=== PATIENT | female | born 1965 | race Caucasian/White ===

== ENCOUNTER 2021-01-12 21:39 | Emergency (ER) | payer SELFPAY ==
[2021-01-12 22:17] VITALS: BP 129/58; PULSE 70; RESP 18; TEMP 36.9; O2SAT 96; BMI 22.6
--- NOTE | 2021-01-12 22:26 | XR_ITS ---
PROCEDURE INFORMATION: Exam: XR Chest Exam date and time: 01/12/2021 10:26 PM Age: 55 years old Clinical indication: Cough and fever; Additional info: Cough with fever TECHNIQUE: Imaging protocol: XR of the chest. Views: 2 views. COMPARISON: No relevant prior studies available. FINDINGS: Lungs: Unremarkable. No consolidation. Pleural spaces: Unremarkable. No pleural effusion. No pneumothorax. Heart/Mediastinum: Unremarkable. No cardiomegaly. Bones/joints: Unremarkable. IMPRESSION: No acute findings.
[2021-01-12 22:31] LABS: Coronavirus 19, PCR Not Detected (NotDetected); Influenza A, PCR Not Detected (NotDetected); Influenza B, PCR Not Detected (NotDetected)
[2021-01-12 22:33] LABS: Basophils # 0.1 K/mm3 (0-0.2); Basophils % 0.7 % (0.1-2.0); Eosinophils % 0.3 % (0.1-12.0); Hematocrit 40.8 % (37.0-47.0); Hemoglobin 13.7 g/dL (12.2-16.2); Lymphocytes # 0.8 K/mm3 (0.7-4.5); Mean Corpuscular HGB Conc 33.5 g/dL (31.8-35.4); Mean Corpuscular Volume 101.5 fl (81-99); Mean Platelet Volume 8.6 fl (7.4-10.4); Monocytes % 7.4 % (1.7-9.3); Neutrophils # 11.4 K/mm3 (1.8-7.8); Neutrophils % 85.6 % (37.0-80.0); Platelet Count 327 K/mm3 (142-424); Red Blood Count 4.02 M/mm3 (4.20-5.40); Red Cell Distribution Width 13.5 % (11.5-17.5); White Blood Count 13.4 K/mm3 (4.8-10.8)
[2021-01-12 22:37] LABS: Alanine Aminotransferase 38 U/L (12-78); Albumin Level 4.3 g/dl (3.5-5.0); Albumin/Globulin Ratio 1.6 (1.1-1.8); Alkaline Phosphatase 80 U/L (38-126); Anion Gap 14.7 mEq/L (5-15); Aspartate Amino Transferase 36 U/L (14-36); Bilirubin,Total 0.5 mg/dl (0.2-1.3); Blood Urea Nitrogen 12 mg/dl (7-17); Calcium 8.9 mg/dl (8.4-10.2); Carbon Dioxide 26 mmol/L (22.0-30.0); Chloride 102 mmol/L (98-107); Creatinine Clearance Estimated 106 mL/min (50-200); Estimated Glomerular Filt Rate 104 ml/min (>60); GFR (African American) 126 ML/MIN (>60); Globulin 2.7 g/dL (1.3-3.2); Glucose 157 mg/dl (74-100); MANUAL DIFFERENTIAL MANUAL DIFFERENTIAL (MANUAL DIFF); Potassium 3.7 mmoL/L (3.5-5.1); Sodium 139 mmol/L (136-145)
[2021-01-12 22:42] VITALS: BP 121/67; PULSE 63; O2SAT 95
[2021-01-12 22:42] LABS: Strep Scrn Group A (Rapid) Negative (Negative)
[2021-01-12 22:43] LABS: C-Reactive Protein 26.3 mg/L (0-4)
[2021-01-12 22:56] LABS: Procalcitonin 0.053 ng/mL (0.0-2.0)
[2021-01-12 23:00] VITALS: BP 116/70; PULSE 66; O2SAT 94
[2021-01-12 23:00] LABS: Erythrocyte Sedimentation Rate 20 mm/hr (0-30)
[2021-01-12 23:15] LABS: Lymphocytes % 8 % (10-50); Monocytes % 8 % (2-9); Neutrophils % 84 % (42-76); Total Cells Counted 100
[2021-01-12 23:16] LABS: Macrocytosis 1+; Platelet Estimate Normal
[2021-01-12 23:53] LABS: Microscopic, Urine URINE MICROSCOPIC (MICROSCOPIC)
[2021-01-12 23:57] LABS: Appearance,Urine CLEAR (Clear); Bilirubin,Urine Negative (Negative); Blood, Urine TRACE-I (Negative); Color,Urine STRAW (Yellow); Glucose,Urine (UA) Negative (Negative); Ketones,Urine Negative (Negative); Leukocyte Esterase,Urine Negative (Negative); Nitrate,Urine Negative (Negative); Protein,Urine Negative (Negative); Specific Gravity, Urine <= 1.005 (1.005-1.030); Urobilinogen,Urine 0.2 EU/dl (0.2)
--- NOTE | 2021-01-13 00:13 | HMH.EDURI ---
ED Disposition Clinical Impression: Pharyngitis Qualifiers: Pharyngitis/tonsillitis etiology: unspecified etiology Qualified Code(s): J02.9 - Acute pharyngitis, unspecified Disposition: Home, Self-Care Condition on Discharge: Good Instructions: Sore Throat Additional Instructions: use meds and advil and tyenol and see pcp for follow up Prescriptions: predniSONE [Prednisone 20mg Tab] 20 mg PO BID #10 tab Prescription Printed Azithromycin [Zithromax 250mg tab] 250 mg PO DIRECTED #6 tab Prescription Printed Referrals: Danny Hi MD [Primary Care Provider] - - Critical Care Critical Care Time: No Attestation: On 01/12/21, the high probability of a clinically significant, sudden or life threatening deterioration of the following system(s) required my full and direct attention, intervention and personal management. The time I documented below is in addition to time spent performing reported procedures but includes the following listed in this critical care notation. Medical Decision Making - Medical Records Medical records reviewed: Yes: I reviewed the patient's medical records. - Harsha Inquiry Pt receiving controlled substance: No Vital Signs: 01/12/21 22:17 01/12/21 22:42 01/12/21 23:00 Temperature 98.5 F Temperature Source Oral Pulse Rate 63 66 Pulse Rate [Right] 70 Respiratory Rate 18 Blood Pressure 121/67 116/70 Blood Pressure [Left Arm] 129/58 L Blood Pressure Mean 99 93 Blood Pressure Mean [Left Arm] 81 02 Sat by Pulse Oximetry 96 95 94 L Oxygen Delivery Method Room Air - Lab Data Lab results reviewed: Yes: I reviewed the patient's lab results. Lab Results 01/12/21 22:10: WBC 13.4 H, RBC 4.02 L, Hgb 13.7, Hct 40.8, MCV 101.5 H, MCH 34.0 H, MCHC 33.5, RDW 13.5, Plt Count 327, MPV 8.6, Neut % (Auto) 85.6 H, Lymph % (Auto) 6.0 L, [place] % (Auto) 7.4, Eos % (Auto) 0.3, Baso % (Auto) 0.7, Neut # (Auto) 11.4 H, Lymph # (Auto) 0.8, [place] # (Auto) 1.0, Eos # (Auto) 0.0, Baso # (Auto) 0.1, Total Counted 100, Neutrophils % (Manual) 84 H, Lymphocytes % (Manual) 8 L, Monocytes % (Manual) 8, Platelet Estimate Normal, RBC Morphology Not Reportable, Macrocytosis 1+, ESR 20 01/12/21 22:10: Sodium 139, Potassium 3.7, Chloride 102, Carbon Dioxide 26, Anion Gap 14.7, BUN 12, Creatinine 0.60, Estimated Creat Clear 106, Estimated GFR 104, Est GFR ( Amer) 126, Glucose 157 H, Calcium 8.9, Total Bilirubin 0.5, AST 36, ALT 38, Alkaline Phosphatase 80, C-Reactive Protein 26.3 H, Total Protein 7.0, Albumin 4.3, Globulin 2.7, Albumin/Globulin Ratio 1.6, Procalcitonin 0.053 01/12/21 22:10: Group A Strep Rapid Negative 01/12/21 22:10: SARS-CoV-2 (PCR) Not detected, Influenza A Untype (PCR) Not detected, Influenza Type B (PCR) Not detected 01/12/21 23:50: Urine Color Straw, Urine Appearance Clear, Urine pH 6.0, Ur Specific [place] <= 1.005, Urine Protein Negative, Urine Glucose (UA) Negative, Urine Ketones Negative, Urine Blood Trace-i, Urine Nitrate Negative, Urine Bilirubin Negative, Urine Urobilinogen 0.2, Ur Leukocyte Esterase Negative Result diagrams: 01/12/21 22:10 01/12/21 22:10 Orders (Tests/Meds): ED MEDICATIONS Generic Name Dose Route Start Last Admin Trade Name Freq PRN Reason Stop Dose Admin Sodium Chloride 1,000 mls @ 999 mls/hr 01/12/21 22:30 01/12/21 22:37 Sod Chlor 0.9% 1000ml Bag IV 01/12/21 23:30 999 mls/hr .Q1H1M MOY Administration Sodium Chloride 1,000 mls @ 999 mls/hr 01/12/21 23:45 01/12/21 23:52 Sod Chlor 0.9% 1000ml Bag IV 01/13/21 00:45 999 mls/hr .Q1H1M MOY Administration Discontinued Medications Generic Name Dose Route Start Last Admin Trade Name Freq PRN Reason Stop Dose Admin Dexamethasone Sodium Phosphate 10 mg 01/12/21 22:26 01/12/21 22:36 Dexamethasone 4mg/Ml 1ml Vial IV 01/12/21 22:27 10 mg ONCE ONE Administration Ketorolac Tromethamine 30 mg 01/12/21 22:26 01/12/21 22:36 Ketorolac 30mg/Ml V
[2021-01-13 00:14] LABS: Squamous Epithelial Cell,Urine Occasional #/hpf (0-5)
[2021-01-13 00:39] VITALS: BP 122/64; PULSE 64; RESP 18; TEMP 36.6; O2SAT 98
== END 2021-01-13 00:42 | disposition home or self-care (01) ==
PROVIDERS: Emergency Provider Emergency Medicine; PCP Emergency Medicine
DX: J02.9 Acute pharyngitis, unspecified (principal); Z20.822 Contact with and (suspected) exposure to COVID-19
CPT/HCPCS: 71046; 80053; 81001; 84145; 85007; 85025; 85651; 86140; 87430; 96365; 96366; 96375; 99284; J2405; U0003

== ENCOUNTER 2021-05-22 18:50 | Emergency (ER) | payer OTHER, SELFPAY ==
[2021-05-22 18:51] VITALS: BP 98/62; PULSE 69; RESP 20; TEMP 36.9; O2SAT 69; BMI 25.2
--- NOTE | 2021-05-22 20:05 | XR_ITS ---
PROCEDURE INFORMATION: Exam: XR Left Knee Exam date and time: 05/22/2021 8:05 PM Age: 55 years old Clinical indication: Pain; Knee; Left; Additional info: Pain, swelling TECHNIQUE: Imaging protocol: XR Left knee. Views: 3 views. COMPARISON: No relevant prior studies available. FINDINGS: Bones/joints: No acute fracture or dislocation. Mild tricompartmental osteoarthrosis. Soft tissues: Rlsh-nq-ncqenosx anterior soft tissue edema. IMPRESSION: 1. No acute fracture or dislocation. 2. Bilw-sd-xnrxrjke anterior soft tissue edema. Posttraumatic versus inflammatory etiologies would be most likely.
--- NOTE | 2021-05-22 20:05 | HMH.EDGENADL ---
ED Disposition Clinical Impression: Swelling of left knee joint Disposition: Home, Self-Care Condition on Discharge: Good Instructions: DI for Knee Pain, DI for Knee Effusion Additional Instructions: You have been evaluated for atraumatic left knee pain. Diagnosed with soft tissue swelling, concerning for inflammation or an effusion. Please take anti-inflammatories like naproxen every 6 hours. Wear a compressive wrap. Use ice and elevation. Follow-up with your primary care doctor for symptom recheck in 1 to 2 days. Return to the emergency department for any new or worsening symptoms Prescriptions: Naproxen [Naproxen 500mg tab] 500 mg PO Q8 10 Days #30 tab Transmission Status: Pending to [facility] Referrals: Danny Hi MD [Primary Care Provider] - Time of Disposition: 20:57 - Critical Care Critical Care Time: No Attestation: On 05/22/21, the high probability of a clinically significant, sudden or life threatening deterioration of the following system(s) required my full and direct attention, intervention and personal management. The time I documented below is in addition to time spent performing reported procedures but includes the following listed in this critical care notation. Medical Decision Making - Medical Records Medical records reviewed: Yes: I reviewed the patient's medical records. - Harsha Inquiry Pt receiving controlled substance: No Vital Signs: 05/22/21 18:51 Temperature 98.5 F Temperature Source Oral Pulse Rate [Apical] 69 Respiratory Rate 20 Blood Pressure [Right Arm] 98/62 L Blood Pressure Mean [Right Arm] 74 Blood Pressure Source [Right Arm] Automatic Cuff Blood Pressure Position [Right Arm] Sitting 02 Sat by Pulse Oximetry 69 L Oxygen Delivery Method Room Air Orders (Tests/Meds): ED MEDICATIONS Discontinued Medications Generic Name Dose Route Start Last Admin Trade Name Freq PRN Reason Stop Dose Admin Naproxen 500 mg 05/22/21 20:05 05/22/21 20:16 Naproxen 500mg Tablet PO 05/22/21 20:06 500 mg ONCE ONE Administration Medical Decision Narrative: In summary this is a previously healthy 55-year-old female presenting to the emergency department with left knee swelling and pain. Patient clinically stable on arrival. Vital signs within normal limits, afebrile. Palpable swelling at the superior margin of the patella. There is no erythema or warmth to suggest septic arthritis. Patient has no systemic signs of illness. There were no falls or trauma. No twists or sprains. Will obtain x-rays to assess for bone spur or effusion. Patient given 500 mg naproxen. X-rays show soft tissue swelling, concerning for an effusion. No other acute abnormality. On reassessment, patient remains stable. Recommended anti-inflammatories like naproxen every 6 hours. Recommended a compressive wrap and elevation. Follow-up with PCP in 1 to 2 days for symptom recheck. Given return precautions. Stable for discharge. General Adult HPI - General Chief complaint: PAIN Stated complaint: L knee pain, swelling Time Seen by Provider: 05/22/21 19:50 Mode of Arrival: Ambulatory Limitations: No Limitations Description of Symptoms (Recalled from ER Triage Doc. by RN): Patient c/o left knee swelling and tenderness. C/o pain on the sides of her knee and the back as well. Denies fall or injury but states that her sons cat bit her knee a month ago. States that she has not have any fever nor did she have any signs of infection following the cat bite. - History of Present Illness HPI narrative: 55-year-old female presenting to the emergency department with atraumatic left knee pain. Symptoms started about 4 to 5 days ago. She has swelling in the superior portion of the kneecap. On the right side and the left side. Pain is described as a tense sensation. It is worse when bending the knee. Has minimal pain with walking. No redness or warmth to the knee joint. No kno
[2021-05-22 21:11] VITALS: BP 100/65; PULSE 80; RESP 20; TEMP 36.8; O2SAT 99
== END 2021-05-22 21:15 | disposition home or self-care (01) ==
PROVIDERS: Emergency Provider Emergency Medicine; PCP Emergency Medicine
DX: M25.462 Effusion, left knee (principal); F17.210 Nicotine dependence, cigarettes, uncomplicated
CPT/HCPCS: 73562; 99282

== ENCOUNTER 2023-08-07 07:36 | Outpatient (CLI) | payer OTHER, SELFPAY ==
--- NOTE | 2023-08-07 07:45 | CT_ITS ---
FINAL REPORT TECHNIQUE: Axial images through the abdomen and pelvis were performed without contrast. This study was performed with techniques to keep radiation doses as low as reasonably achievable, (ALARA). Individualized dose reduction techniques using automated exposure control or adjustment of mA and/or kV according to the patient's size were employed. CLINICAL HISTORY: HERNIA OF ABDOMEN COMPARISON: None FINDINGS: Abdomen: The lung bases are clear. There is moderate fatty infiltration of the liver. The gallbladder is present. The spleen, pancreas, and adrenals are unremarkable. No definite kidney stones are seen. There is no evidence of hernia. Pelvis: The urinary bladder is unremarkable. The appendix is unremarkable. There are scattered diverticula throughout the descending and sigmoid colon. There is no pelvic mass or inflammation. There are moderate hypertrophic changes of degenerative disc disease at L5-S1. IMPRESSION: Descending and sigmoid diverticulosis without evidence of diverticulitis. Fatty liver. No evidence of hernia. Reviewed, Interpreted and Dictated by Jarad Thomson MD Transcribed by Liliya Rob Authenticated and . [facility]
== END 2023-08-07 23:59 ==
LOC: RAD 07:37
PROVIDERS: PCP Nurse Practitioner Family; Visit Provider Nurse Practitioner Family
DX: K46.9 Unspecified abdominal hernia without obstruction or gangrene (principal)
CPT/HCPCS: 74176

== ENCOUNTER 2025-05-05 15:54 | Emergency (ER) | payer OTHER, SELFPAY ==
[2025-05-05] VITALS (8 sets, daily range): BP systolic 115–140; BP diastolic 32–95; PULSE 66–86; RESP 16–18; TEMP 36.7; O2SAT 91–99; BMI 25.8
--- OUTSIDE RECORDS SUMMARY | 2025-05-05 16:04 | XMS_ITS | Data Portability ---
Author Organization [facility] Address [address] [place] [address] Assessment No assessment recorded. Plan of Treatment Reminders Order Date Submit Date Provider Last Modified By Organization Details Last Modified Time Details Appointments None recorded. Lab rapid strep group A, throat 2023 024 [facility], [address] [place] [address], [id number], 4 18:43:53 rapid SARS CoV + SARS CoV 2 Ag, QL IA, respiratory specimen 2023 024 [facility], [address] [place] [address], [id number], 4 10:54:39 rapid flu (A+B) 2023 024 [facility], [address] [place] [address], [id number], 4 16:43:48 Referral None recorded. Procedures None recorded. Surgeries None recorded. Imaging CT, abdomen + pelvis, w/o contrast 2023 024 [facility] ([facility] [address], [place], [address], 4 14:04:40 Medication Orders prednisone 20 mg tablet 2023 024 [facility], [address] [address], [place], [address], 18:43:03 prednisone 20 mg tablet 2023 024 [facility], [address], [address], 18:22:15 Patient TargetsNo targets recorded. Patient InstructionsNo instructions recorded. Reason for Referral None Reported. Results Created Date Observation Date Name Description Value Unit Range Abnormal Flag Note LastModifiedBy Organization Detail LastModifiedTime 06/06/19 24 06/06/2023 rapid flu (A+B) Flu negati ve Not Available [address], [address], 06/06/2023 15:42:51 06/06/19 24 06/06/2023 rapid flu (A+B) Type Both A & B Not Available [address], [address], 06/06/2023 15:42:51 12/30/19 24 12/30/2023 rapid strep group A, throa t Strep negati ve Not Available [address], [address], 12/30/2023 17:55:55 12/30/19 24 12/30/2023 rapid strep group A, throa t Culture No Not Available [address], [address], 12/30/2023 17:55:55 12/31/19 24 12/31/2023 rapid SARS CoV + SARS CoV 2 Ag, QL IA, respi rator y speci men SARS CoV antigen Invali d Not Available [address], [address], 12/30/2023 17:57:23 08/07/19 24 08/07/2023 CT, abdom en + pelvi s, w/o contr ast No observ ation record ed. [facility] [address], [place], [address], 08/08/2023 14:45:02 Result Notes None recorded. Problems No Known Problems Medical Equipment None Reported. Allergies No known drug allergies Medications Name Sig Start Date Stop Date Status Note LastModified by Organization Details LastModified Time prednisone 20 mg tablet TAKE ONE (1) TABLET TWICE A DAY BY ORAL ROUTE FOR FIVE (5) DAYS. active Not Available Not Available No t Available Vitals Date Recorded Body weight Body mass index (BMI) Body height Body temperature Heart rate Oxygen saturation Respiratory rate Systolic And Diastolic Provider Name and Address Organization Details Last Updated DateTime 4 80792.9 6 g 26.1 kg/m2 167.64 cm 98 [degF] 68 /min 95 % 18 /min 122/76 mm[Hg] Nisha Ramesh [place] - [facility] 4 15:37:59 Date Recorded Body height Body mass index (BMI) Body weight Body temperature Heart rate Oxygen saturation Respiratory rate Pain severity - 0-10 verbal numeric rating [Score] - Reported Systolic And Diastolic Provider Name and Address Organization Details Last Updated DateTime 4 167.64 cm 26.8 kg/m2 47451.3 3 g 98.3 [degF] 76 /min 98 % 18 /min 3 120/74 mm[Hg] Teresa Willingham [place] - [facility] 4 17:58:07 Social History Question Answer Notes LastModified by Organizat ion Details LastModified Time Tobacco Smoking Status Current Every Day Smoker Nisha Ramesh [facility], [place] - [facility] 06/06/2023 15:40:34 Do You Have An Advance Directive? No Information not available 06/06/2023 Are You Blind Or Do You Have Difficulty Seeing? No Information not available 06/06/2023 What Is Your Level Of Caffeine Consumption? Moderate Information not available 06/06/2023 Are You Deaf Or Do You Have Serious Difficulty Hearing? No Information not available 06/06/2023 What Type Of Diet Are You Following? REGULAR Information not available 06/06/2023 What Is The Highest Grade Or Level Of School You Have Completed Or The Highest Degree You Have Received? EC99946-4 Information not available 06/06/2023 Have There Been Any Changes To Your Family Or Social Situation? No Information no t available 06/06/2023 What Is The Fluoride Status Of Your Home? Unknown Information not available 06/06/2023 Do You Have A Medical Power Of Degreasing Solution Reclaimer? No Information not available 06/06/2023 What Was The Date Of Your Most Recent Tobacco Screening? 06/06/2023 Information not available 06/06/2023 What Is Your Current Pack Years? 30ormorepacky ears Information not available 06/06/2023 What Is Your Relationship Status? Single Information not available 06/06/2023 Do You Have Smoke And Carbon Monoxide Detectors In Your Home? Yes Information not available 06/06/2023 At What Age Did You Start Smoking Tobacco? 16 Information not available 06/06/2023 How Much Tobacco Do You Smoke? 1 PPW Information not available 06/06/2023 Has Tobacco Cessation Counseling Been Provided? No Information not available 06/06/2023 How Many Years Have You Smoked Tobacco? 41 Information not available 06/06/2023 Do You Have Difficulty Walking Or Climbing Stairs? No Information not available 06/06/2023 Sex: Female Functional Status Question Answer Note LastModified by Organizat ion Details LastModified Time How many times per week do you consume alcohol? 1-2 times per week Information not available 06/06/2023 Do you use any illicit or recreational drugs? No Information not available 06/06/2023 Do you or have you ever used any other forms of tobacco or nicotine? No Information not available 06/06/2023 What is your level of alcohol consumption? Occasional Information not available 06/06/2023 Are you currently employed? No Information not available 06/06/2023 Do you have transportation difficulties? No Information not available 06/06/2023 Are you able to walk independently without assistance or assistive devices? YESWOREST Information not available 06/06/2023 Do you have difficulty doing errands alone? No Information not available 06/06/2023 Are you able to care for yourself independently? Yes Information not available 06/06/2023 Do you have difficulty dressing, bathing, grooming, or toileting? No Information not available 06/06/2023 What is your exercise level? None Information not available 06/06/2023 Mental Status Question Answer Note LastModified by Organizat ion Details LastModified Time Do you feel stressed (tense, restless, nervous, or anxious, or unable to sleep at night)? [id number] Information not available 06/06/2023 Do you have difficulty concentrating, remembering or making decisions? No Information no t available 06/06/2023 Family History Relationship Description Onset Age of this Age Resolved Age Notes LastModified by Organization Details LastModified Time Father No current problems or disability bstears Not available 06/06 15:39:30 Mother No current problems or disability bstears Not available 06/06 15:39:30 Medical History No medical history recorded. Gynecological History Statement/Question Response Date of Last Colonoscopy Date of Last Mammogram Most Recent Bone Density Menses Monthly N Date of Last Pap Smear LMP Unknown Obstetrics History GPAL:G 0 P 0 0 0 0 Immunizations Vaccine Type Date Status Note Provider Nam e and Address Organization Details Recorded Time Td (adult), 2 Lf tetanus toxoid, preservative free, adsorbed 6 completed [place] - [facility] 06/06/2023 15:29:55 Past Encounters Encounter ID Performer Location Encounter Start Date Encounter Closed Date Diagnosis/Indication Diagnosis SNOMED-CT Code Diagnosis ICD10 Code Diagnosis IMO Codes Diagnosis Note [id number] Jose Quintanilla APRN [address] [address] 06/06/2023 15:15:51 06/06/2023 16:41:34 Acute upper respiratory infection 17657370 J06.9 Abdominal pain 14738229 R10.9 Hernia of abdominal cavity 66397528 K46.9 r/o hernia or risk of bowel injuryinfo rmed if symptoms return or worsen go to ed last [id number] Jose Quintanilla APRN [facility] [address] [place] [address] 12/30/2023 17:34:43 12/30/2023 18:41:43 Pharyngitis 126930357 J02.9 Acute bronchitis 4371441 2 J20.9 Acute uppe r respiratory infection 25118088 J06.9 no sign of a bacterial infection. likely viral. viruses can take 7-14 days to run their course. nasal saline and bulb syringe to remove nasal drainage to help with congestion . monitor temp. Tylenol or Motrin as needed for pain or fever. encourage fluids, water, Gatorade, power aide, Pedialyte if infant/tod dler/child warm salt water gargles warm fluids sore throat lozenges sleep elevated humidifier /vaporizer follow up immediatel y for new or worsening symptoms or no noticeable improvemen t over the next 48-72 hours Health Concerns Section Related Observation LastModified by Organization Detai ls LastModified Time None Recorded Concern Status LastModified by Organization Details LastModified Time None Recorded Advance Directives Directive N: Payers Insurance Date Sequence Insurance Name Policy Number Policy Ward Covered Member ID Ward Member ID Guarantor Name 12/30/2023 1 [employer] [facility] (MEDICAID [facility] Sharon Canales [id number] Sharon Canales 12/30/2023 [place] [employer] (MEDICAID) Sharon Canales [id number] Sharon Canales Notes Date Note Type Note Provider Name and Address Organization Details Recorded Time 06/06/2023 text/html ROS as noted in the HPI 57 year old female who presents to the office today with concerns ofcough, congestion, headache, body aches.pt also having abd pain, tenderness and at times a hard knot that sticks out. pt states she has had a change in her bowel habits. this has been going on for months Jose Quintanilla APRN [address], [place], [address], [place] - [facility] 06/06/2023 16:44:11 12/30/2023 text/html ROS as noted in the HPI 58 yr old female presents with bilateral ear pain, sore throat, cough, clear drainage and body aches. Jose Quintanilla, [employer] P[employer] [address], [place], [address], [facility] - [facility] 12/30/2023 18:43:27 OBGyn Episode No OBEpisode recorded.
[2025-05-05 16:12] LABS: Bilirubin,Urine Negative (Negative); Color,Urine YELLOW (Yellow); Glucose,Urine (UA) Negative (Negative); Ketones,Urine 1+ (Negative); Leukocyte Esterase,Urine Negative (Negative); PH,Urine 5.5 (5.0-8.5); Protein,Urine Negative (Negative); Specific Gravity, Urine >= 1.030 (1.005-1.030); Urobilinogen,Urine 0.2 EU/dl (0.2)
[2025-05-05 16:13] LABS: Microscopic, Urine URINE MICROSCOPIC (MICROSCOPIC)
--- NOTE | 2025-05-05 16:20 | [facility].EDGENADL ---
Discharge Plan Disposition Patient Disposition: Left Against Medical Advice Condition: Fair Prescriptions Prescriptions: No Action prednisone 20 mg tablet 20 mg PO BID Qty: 10 0RF Rx Instructions: administer with food or milk acyclovir 400 mg tablet 400 mg PO QID 7 Days Qty: 28 0RF naproxen 500 MG tablet 500 mg PO Q8 10 Days Qty: 30 0RF Referrals Follow up/Referrals: Jose Quintanilla APRN [Primary Care Provider, Medical] - See instructions Clinical Impressions Clinical Impression: Abscess of sigmoid colon due to diverticulitis Instructions Patient Instructions: DI for Urinary Tract Infection (UTI), DI for Urinary Tract Infection in Children Print Language Print Language: Korean Discharge ED Provider: Michael Ramos General Adult HPI <Farheen Gilbert APRN - Last Filed: 05/05/25 19:23> General Chief complaint: Urogenital-Female Stated complaint: burning,frequency with urination,stomach pain Time Seen by Provider: 05/05/25 16:03 Mode of Arrival: Ambulatory Source of Information: Patient Description of Symptoms (Recalled from ER Triage Doc. by RN): Reports burning with urination, abdominal pain and feeling like she needs to poop but can't. States this has been going on for 3 days. History of Present Illness HPI narrative: Kristen Mahmood is a 59-year-old female without significant past medical history who presents emergency room today with complaints of dysuria. Patient reports her dysuria started earlier this morning. Does report she has had a couple days of nonspecific lower abdominal cramping when she uses the bathroom. States the cramping was worse when she had a bowel movement. During her bowel movement, she reports the cramping seem to radiate down into her groin region. Otherwise has no abdominal pain while at rest. No prior abdominal surgeries. Denies any cough, fever, chest pain, shortness of breath. Does not take any blood thinners. Endorses daily tobacco use. No alcohol or illicit drug use. Please note that the above description of symptoms, and this electronic medical record under categorization of recalled from ER triage doctor by RN are reflective of an initial nursing assessment, however, is not reflective of my full history and physical exam that was personally taken and clarified. Consequentially, this proceeding description of symptoms, which may include the patient's cauterized chief complaint in the EMR, do not reflect my personal clinical impression, and the ultimate description of the history of present illness stated complaints should be deferred to this section of this note. Unless stated otherwise were congruent with the section of the note, additional signs, symptoms, or incongruence can be interpreted as in or accurate with my clinical impression. Related Data Previous Rx's ?Medication ?Instructions ?Recorded naproxen 500 mg tablet 500 mg PO Q8 10 days #30 tabs 05/22/21 acyclovir 400 mg tablet 400 mg PO QID 7 days #28 tabs 10/16/24 prednisone 20 mg tablet 20 mg PO BID #10 tabs 10/16/24 amoxicillin 500 mg-potassium 1 tab PO BID #20 tabs 05/05/25 clavulanate 125 mg tablet (Augmentin) Allergies Allergy/AdvReac Type Severity Reaction Status Date / Time No Known Allergies Allergy Verified 10/16/24 13:43 PFS <Farheen Gilbert APRN - Last Filed: 05/05/25 19:23> PFS Disclaimer: The information contained in this section may have been updated after the patient was seen, as this information can be updated by other users. Social History , MOLDING PRESS OPERATOR) Smoking Status: Current every day smoker tobacco type: cigarettes packs per day: 1 alcohol intake: never current occupational status: unemployed Travel in the last 8 weeks?: None Have you lived/traveled outside US in past 30 days?: No Contact w/someone who lives/traveled outside US past 30 days?: No Exposure to someone with infectious disease in past 14 days?: No Do you have a fever (greater than 100.4 F or 38 C)?: No Have you tested positive for COVID-19?: No Exposed to someone with COVID-19 in past 14 days?: No Do you have a sore throat?: No Do you have a cough?: No Do you have any weakness?: No Do you have any diarrhea?: No Are you experiencing any unusual bleeding?: No Do you have any muscle aches/pain?: No Do you have any abdominal pain?: No Are you experiencing loss of taste or smell?: No Other Medical History Have you received the Flu Vaccine for this season: No Have you received the Pneumonia Vaccine: No <Farheen Gilbert APRN - Last Filed: 05/05/25 19:23> ROS Obtained: Yes All systems reviewed & no additional complaints except as documented Physical Exam <Farheen Ofelia MOLDING PRESS OPERATOR - Last Filed: 05/05/25 19:23> General General appearance: alert Respiratory Respiratory exam: Present normal lung sounds bilaterally Cardiovascular Cardiovascular exam: Present regular rate and normal rhythm Neurological Exam Neurological exam: Present alert and oriented X3 Medical Decision Making <Farheen DARVIN GilbertN - Last Filed: 05/05/25 19:23> Medical Records Screening: Per USPSTF and CDC recommendations, given the prevalence of disease in our region, it is our hospital?s policy to screen for HIV and viral Hepatitis for all patients aged 18 and over and those with ongoing risk factors. Harsha Inquiry Pt receiving controlled substance: No Vital Signs: 05/05/25 16:05 05/05/25 16:12 05/05/25 16:30 Temperature 98.0 F Temperature Source Oral Pulse Rate 66 69 Pulse Rate [Radial] 76 Respiratory Rate 18 Blood Pressure 118/32 L Blood Pressure [Right Arm] 133/93 H Blood Pressure Mean [Right Arm] 106 Blood Pressure Source [Right Arm] Automatic Cuff Blood Pressure Position [Right Arm] Sitting 02 Sat by Pulse Oximetry 98 99 91 L Oxygen Delivery Method Room Air 05/05/25 17:29 05/05/25 17:30 05/05/25 18:00 Temperature Temperature Source Pulse Rate 83 73 70 Pulse Rate [Radial] Respiratory Rate Blood Pressure 122/95 H 126/71 Blood Pressure [Right Arm] Blood Pressure Mean [Right Arm] Blood Pressure Source [Right Arm] Blood Pressure Position [Right Arm] 02 Sat by Pulse Oximetry 97 97 99 Oxygen Delivery Method 05/05/25 18:31 Temperature Temperature Source Pulse Rate 72 Pulse Rate [Radial] Respiratory Rate Blood Pressure 115/70 Blood Pressure [Right Arm] Blood Pressure Mean [Right Arm] Blood Pressure Source [Right Arm] Blood Pressure Position [Right Arm] 02 Sat by Pulse Oximetry 96 Oxygen Delivery Method Lab Data Lab Results 05/05/25 15:54: Urine Color Yellow, Urine Appearance Clear, Urine pH 5.5, Ur Specific [place] >= 1.030, Urine Protein Negative, Urine Glucose (UA) Negative, Urine Ketones 1+, Urine Blood Trace-i, Urine Nitrate Negative, Urine Bilirubin Negative, Urine Urobilinogen 0.2, Ur Leukocyte Esterase Negative, Urine RBC 10-20, Urine WBC 3-5, Ur Squamous Epith Cells 5-10, Urine Bacteria 2+, Urine Mucus 2+ 05/05/25 16:48: WBC 19.1 H, RBC 3.74 L, Hgb 12.3, Hct 36.8 L, MCV 98.4, MCH 32.9 H, MCHC 33.4, RDW 12.5, Plt Count 359, MPV 10.3, Neut % (Auto) 74.5, Lymph % (Auto) 13.9, Lynn % (Auto) 10.1 H, Eos % (Auto) 0.9, Baso % (Auto) 0.3, Neut # (Auto) 14.2 H, Lymph # (Auto) 2.7, Lynn # (Auto) 1.9 H, Eos # (Auto) 0.2, Baso # (Auto) 0.1, Total Counted 100, Neutrophils % (Manual) 75, Lymphocytes % (Manual) 11, Monocytes % (Manual) 13 H, Eosinophils % (Manual) 1, Platelet Estimate Normal, RBC Morphology Normal, Sodium 137, Potassium 3.8, Chloride 103, Carbon Dioxide 27, Anion Gap 10.8, BUN 17, Creatinine 0.60, Estimated Creat Clear 116, Estimated GFR 102, Est GFR ( Amer) 124, Glucose 114 H, Calcium 8.9, Magnesium 1.9, Total Bilirubin 0.8, AST 41 H, ALT 47, Alkaline Phosphatase 96, Troponin I < 0.01, Total Protein 7.6, Albumin 4.3, Globulin 3.3 H, Albumin/Globulin Ratio 1.3, Lipase 52, HCV Ab TERESA w/Rflx PCR Qn Negative, HIV Ag/Ab Combo Qual Negative 05/05/25 16:48 05/05/25 16:48 Orders (Tests/Meds): ED MEDICATIONS Generic Name Dose Route Start Last Admin Trade Name Freq PRN Reason Stop Dose Admin Amoxicillin/Clavulanate Potassium 1 each 05/05/25 19:19 05/05/25 19:24 Amoxicillin/Clavulanate Potassium 875/125mg Tablet PO 05/05/25 19:20 1 each ONCE ONE Administration Nicotine 21 mg 05/05/25 19:00 Nicotine 21mg/24hr Patch TD 06/04/25 18:59 DAILY MOY Discontinued Medications Generic Name Dose Route Start Last Admin Trade Name Freq PRN Reason Stop Dose Admin Acetaminophen 650 mg 05/05/25 19:08 Acetaminophen 325mg Tab PO 06/04/25 19:07 Q4HP PRN Fever or Mild Pain (1-3) Piperacillin Sod/Tazobactam 100 mls @ 200 mls/hr 05/05/25 18:39 Sod 4.5 gm/ Sodium Chloride IV 05/05/25 19:08 ONCE ONE Piperacillin Sod/Tazobactam 50 mls @ 100 mls/hr 05/06/25 06:00 Sod 3.375 gm/ Sodium Chloride IV 05/13/25 05:59 Q6H MOY Iopamidol 80 ml 05/05/25 17:34 05/05/25 17:35 Iopamidol-370 (76%);100ml Bottle IV 05/05/25 17:35 80 ml ONCE ONE Administration Morphine Sulfate 2 mg 05/05/25 19:01 Morphine 2mg/Ml Syringe IV 06/04/25 19:00 Q4HP PRN Severe Pain (7-10) Ondansetron HCl 4 mg 05/05/25 19:08 Ondansetron 4mg/2ml Vial IV 06/04/25 19:07 Q8HP PRN Nausea Oxycodone HCl 5 mg 05/05/25 19:01 Oxycodone 5mg Immediate Release Tablet PO 06/04/25 19:00 Q4HP PRN Moderate Pain (4-6) Sodium Chloride 50 ml 05/05/25 17:34 05/05/25 17:35 0.9 % Sodium Chloride 50 Ml Vial IV 05/05/25 17:35 50 ml ONCE ONE Administration Sodium Chloride 10 ml 05/05/25 17:34 05/05/25 17:35 Sodium Chloride 0.9% 10ml Syr (Rad Only) IV 05/05/25 17:35 10 ml ONCE ONE Administration ORDERS Category Date Time Status CT angio abdomen pelvis Stat Cat Scan 05/05/25 16:40 Completed CBC w/Auto Diff [Complete Blood Count Auto Diff] Stat Lab 05/05/25 16:48 Completed CMP [Comprehensive Metabolic Panel] Stat Lab 05/05/25 16:48 Completed HIV Combo Stat Lab 05/05/25 16:48 Completed Hepatitis C Ab Qual. W/ RFX Stat Lab 05/05/25 16:48 Completed Lipase Stat Lab 05/05/25 16:48 Completed MAG [Magnesium] Stat Lab 05/05/25 16:48 Completed Trop I [Troponin I] Stat Lab 05/05/25 16:48 Completed Troponin I Q3H Lab 05/05/25 19:45 Ordered Troponin I Q3H Lab 05/05/25 22:45 Ordered UA [Urinalysis and Microscopic] Stat Lab 05/05/25 15:54 Completed Blood Culture Stat Micro 05/05/25 18:58 Ordered Urine Culture Stat Micro 05/05/25 15:54 Received Medical Decision Narrative: In summary patient is an 59-year-old female who presents emergency department for evaluation of dysuria and intermittent nonspecific abdominal cramping. Patient not having any focal abdominal pain, no abdominal pain reported at this time. Most reports her cramping and pain are worse when she has a bowel movement. Reports her dysuria started earlier today. No vaginal discharge noted. No fever. Patient is hemodynamically stable, sinus rhythm on the monitor, normotensive upon arrival, afebrile. Unremarkable nonfocal physical exam. Patient without any abdominal tenderness upon palpation. Differential diagnosis includes acute cystitis, appendicitis, kidney stone. Initial workup will be conducted with urinalysis for now. If urinalysis is negative, we will proceed with additional testing. Urinalysis was negative. Basic lab work and CT of the abdomen pelvis with contrast was ordered. Initial workup reviewed by me hematologic labs remarkable of a significant leukocytosis of 19,000. CMP essentially unremarkable. CT of the abdomen pelvis shows a severely plain sigmoid colon with a 1.3 x 2.1 cm abscess likely secondary to diverticulitis, no evidence of perforation noted. Dr. Lopez with general surgery was consulted. Recommended keeping the patient here with IV antibiotics and a clear liquid diet. She was started on Zosyn and blood cultures were drawn. Given this case was discussed with hospital medicine, was graciously accepted for admission by Dr. Luis Daniel Cary came to assess patient to admit her to the hospital, patient expressed that she wished to sign out AGAINST MEDICAL ADVICE. I personally went and spoke to the patient and her daughter who is at bedside. I explained to the patient that if she is to leave AGAINST MEDICAL ADVICE without getting antibiotic treatment, this abscess in her sigmoid colon could perforate causing an extensive amount of numerous issues to include but not limited to sepsis, multiple abdominal surgeries, the need for colostomy, and/or . Patient and daughter aware of the risks of leaving the hospital AGAINST MEDICAL ADVICE. Patient states that she was just not ready to be admitted to the hospital . She wants to go home and smoke a cigarette, she also states she has family that is still at home. I will give her a one-time dose of Augmentin while she is here in the hospital and call her in some Augmentin to her pharmacy. I spent at least 20 minutes discussing the risks of signing out AGAINST MEDICAL ADVICE to this patient. I expressed multiple times that she needs to stay to be admitted for IV antibiotics. Patient continued to desire to leave AGAINST MEDICAL ADVICE. She signed the AMA paperwork, bedside nurse at bedside. <Michael Ramos, DO - Last Filed: 05/05/25 19:35> Medical Records Medical records reviewed: Yes I reviewed the patient's medical records. Vital Signs: 05/05/25 16:05 05/05/25 16:12 05/05/25 16:30 Temperature 98.0 F Temperature Source Oral Pulse Rate 66 69 Pulse Rate [Radial] 76 Respiratory Rate 18 Blood Pressure 118/32 L Blood Pressure [Right Arm] 133/93 H Blood Pressure Mean [Right Arm] 106 Blood Pressure Source [Right Arm] Automatic Cuff Blood Pressure Position [Right Arm] Sitting 02 Sat by Pulse Oximetry 98 99 91 L Oxygen Delivery Method Room Air 05/05/25 17:29 05/05/25 17:30 05/05/25 18:00 Temperature Temperature Source Pulse Rate 83 73 70 Pulse Rate [Radial] Respiratory Rate Blood Pressure 122/95 H 126/71 Blood Pressure [Right Arm] Blood Pressure Mean [Right Arm] Blood Pressure Source [Right Arm] Blood Pressure Position [Right Arm] 02 Sat by Pulse Oximetry 97 97 99 Oxygen Delivery Method 05/05/25 18:31 Temperature Temperature Source Pulse Rate 72 Pulse Rate [Radial] Respiratory Rate Blood Pressure 115/70 Blood Pressure [Right Arm] Blood Pressure Mean [Right Arm] Blood Pressure Source [Right Arm] Blood Pressure Position [Right Arm] 02 Sat by Pulse Oximetry 96 Oxygen Delivery Method Lab Data Lab Results 05/05/25 15:54: Urine Color Yellow, Urine Appearance Clear, Urine pH 5.5, Ur Specific [place] >= 1.030, Urine Protein Negative, Urine Glucose (UA) Negative, Urine Ketones 1+, Urine Blood Trace-i, Urine Nitrate Negative, Urine Bilirubin Negative, Urine Urobilinogen 0.2, Ur Leukocyte Esterase Negative, Urine RBC 10-20, Urine WBC 3-5, Ur Squamous Epith Cells 5-10, Urine Bacteria 2+, Urine Mucus 2+ 05/05/25 16:48: WBC 19.1 H, RBC 3.74 L, Hgb 12.3, Hct 36.8 L, MCV 98.4, MCH 32.9 H, MCHC 33.4, RDW 12.5, Plt Count 359, MPV 10.3, Neut % (Auto) 74.5, Lymph % (Auto) 13.9, Lynn % (Auto) 10.1 H, Eos % (Auto) 0.9, Baso % (Auto) 0.3, Neut # (Auto) 14.2 H, Lymph # (Auto) 2.7, Lynn # (Auto) 1.9 H, Eos # (Auto) 0.2, Baso # (Auto) 0.1, Total Counted 100, Neutrophils % (Manual) 75, Lymphocytes % (Manual) 11, Monocytes % (Manual) 13 H, Eosinophils % (Manual) 1, Platelet Estimate Normal, RBC Morphology Normal, Sodium 137, Potassium 3.8, Chloride 103, Carbon Dioxide 27, Anion Gap 10.8, BUN 17, Creatinine 0.60, Estimated Creat Clear 116, Estimated GFR 102, Est GFR ( Amer) 124, Glucose 114 H, Calcium 8.9, Magnesium 1.9, Total Bilirubin 0.8, AST 41 H, ALT 47, Alkaline Phosphatase 96, Troponin I < 0.01, Total Protein 7.6, Albumin 4.3, Globulin 3.3 H, Albumin/Globulin Ratio 1.3, Lipase 52, HCV Ab TERESA w/Rflx PCR Qn Negative, HIV Ag/Ab Combo Qual Negative Orders (Tests/Meds): ED MEDICATIONS Generic Name Dose Route Start Last Admin Trade Name Freq PRN Reason Stop Dose Admin Amoxicillin/Clavulanate Potassium 1 each 05/05/25 19:19 05/05/25 19:24 Amoxicillin/Clavulanate Potassium 875/125mg Tablet PO 05/05/25 19:20 1 each ONCE ONE Administration Nicotine 21 mg 05/05/25 19:00 Nicotine 21mg/24hr Patch TD 06/04/25 18:59 DAILY MOY Discontinued Medications Generic Name Dose Route Start Last Admin Trade Name Freq PRN Reason Stop Dose Admin Acetaminophen 650 mg 05/05/25 19:08 Acetaminophen 325mg Tab PO 06/04/25 19:07 Q4HP PRN Fever or Mild Pain (1-3) Piperacillin Sod/Tazobactam 100 mls @ 200 mls/hr 05/05/25 18:39 Sod 4.5 gm/ Sodium Chloride IV 05/05/25 19:08 ONCE ONE Piperacillin Sod/Tazobactam 50 mls @ 100 mls/hr 05/06/25 06:00 Sod 3.375 gm/ Sodium Chloride IV 05/13/25 05:59 Q6H MOY Iopamidol 80 ml 05/05/25 17:34 05/05/25 17:35 Iopamidol-370 (76%);100ml Bottle IV 05/05/25 17:35 80 ml ONCE ONE Administration Morphine Sulfate 2 mg 05/05/25 19:01 Morphine 2mg/Ml Syringe IV 06/04/25 19:00 Q4HP PRN Severe Pain (7-10) Ondansetron HCl 4 mg 05/05/25 19:08 Ondansetron 4mg/2ml Vial IV 06/04/25 19:07 Q8HP PRN Nausea Oxycodone HCl 5 mg 05/05/25 19:01 Oxycodone 5mg Immediate Release Tablet PO 06/04/25 19:00 Q4HP PRN Moderate Pain (4-6) Sodium Chloride 50 ml 05/05/25 17:34 05/05/25 17:35 0.9 % Sodium Chloride 50 Ml Vial IV 05/05/25 17:35 50 ml ONCE ONE Administration Sodium Chloride 10 ml 05/05/25 17:34 05/05/25 17:35 Sodium Chloride 0.9% 10ml Syr (Rad Only) IV 05/05/25 17:35 10 ml ONCE ONE Administration ORDERS Category Date Time Status CT angio abdomen pelvis Stat Cat Scan 05/05/25 16:40 Completed CBC w/Auto Diff [Complete Blood Count Auto Diff] Stat Lab 05/05/25 16:48 Completed CMP [Comprehensive Metabolic Panel] Stat Lab 05/05/25 16:48 Completed HIV Combo Stat Lab 05/05/25 16:48 Completed Hepatitis C Ab Qual. W/ RFX Stat Lab 05/05/25 16:48 Completed Lipase Stat Lab 05/05/25 16:48 Completed MAG [Magnesium] Stat Lab 05/05/25 16:48 Completed Trop I [Troponin I] Stat Lab 05/05/25 16:48 Completed Troponin I Q3H Lab 05/05/25 19:45 Ordered Troponin I Q3H Lab 05/05/25 22:45 Ordered UA [Urinalysis and Microscopic] Stat Lab 05/05/25 15:54 Completed Blood Culture Stat Micro 05/05/25 18:58 Ordered Urine Culture Stat Micro 05/05/25 15:54 Received Medical Decision Narrative: In summary patient is an 59-year-old female who presents emergency department for evaluation of dysuria and intermittent nonspecific abdominal cramping. Patient not having any focal abdominal pain, no abdominal pain reported at this time. Most reports her cramping and pain are worse when she has a bowel movement. Reports her dysuria started earlier today. No vaginal discharge noted. No fever. Patient is hemodynamically stable, sinus rhythm on the monitor, normotensive upon arrival, afebrile. Unremarkable nonfocal physical exam. Patient without any abdominal tenderness upon palpation. Differential diagnosis includes acute cystitis, appendicitis, kidney stone. Initial workup will be conducted with urinalysis for now. If urinalysis is negative, we will proceed with additional testing. Urinalysis was negative. Basic lab work and CT of the abdomen pelvis with contrast was ordered. Initial workup reviewed by me hematologic labs remarkable of a significant leukocytosis of 19,000. CMP essentially unremarkable. CT of the abdomen pelvis shows a severely plain sigmoid colon with a 1.3 x 2.1 cm abscess likely secondary to diverticulitis, no evidence of perforation noted. Dr. Lopez with general surgery was consulted. Recommended keeping the patient here with IV antibiotics and a clear liquid diet. She was started on Zosyn and blood cultures were drawn. Given this case was discussed with hospital medicine, was graciously accepted for admission by Dr. Luis Daniel Cary came to assess patient to admit her to the hospital, patient expressed that she wished to sign out AGAINST MEDICAL ADVICE. I personally went and spoke to the patient and her daughter who is at bedside. I explained to the patient that if she is to leave AGAINST MEDICAL ADVICE without getting antibiotic treatment, this abscess in her sigmoid colon could perforate causing an extensive amount of numerous issues to include but not limited to sepsis, multiple abdominal surgeries, the need for colostomy, and/or . Patient and daughter aware of the risks of leaving the hospital AGAINST MEDICAL ADVICE. Patient states that she was just not ready to be admitted to the hospital . She wants to go home and smoke a cigarette, she also states she has family that is still at home. I will give her a one-time dose of Augmentin while she is here in the hospital and call her in some Augmentin to her pharmacy. I spent at least 20 minutes discussing the risks of signing out AGAINST MEDICAL ADVICE to this patient. I expressed multiple times that she needs to stay to be admitted for IV antibiotics. Patient continued to desire to leave AGAINST MEDICAL ADVICE. She signed the AMA paperwork, bedside nurse at bedside. I was consulted by the BELLE, and we discussed the complexity of problems being addressed. I approved the treatment and management plan for this patient's care in the emergency department, thus performing a substantive portion of the medical decision making. Michael Ramos, DO This is Dr. Ramos. I independently evaluated this patient and obtained collateral history as well. She tells me that for the last 3 days she has been having lower abdominal pain characterized as cramping. She also states that she is having dysuria and believes that she had a urinary tract infection. We initially examine the patient and she did not have hardly any abdominal tenderness and she stated that she was currently pain-free and that her pain was more intermittent in nature. We initially proceeded with a urinalysis and found the patient had no evidence of urinary tract infection so we decided to extend her workup with hematologic labs and a CT scan of the abdomen and pelvis. She had a significant leukocytosis of 19. Remainder of labs are largely unremarkable. Given that she is reporting pain out of proportion to what we are finding on physical examination we decided to proceed with a CT angio of the abdomen and pelvis as she also told us that her pain was postprandial in nature. We found that she had concerning evidence of sigmoid diverticulitis with phlegmon versus abscess formation. I personally informed the patient of these results and explained thoroughly the definition of diverticulitis and the associated harms that could come as a consequence of her condition. I stressed the importance of admission to the hospital for IV antibiotics and evaluation by surgery tomorrow. The patient was initially agreeable with this plan and we had her admitted to the hospital medicine service. However, the patient then asked to go outside and smoke a cigarette which is against hospital policy and at this point she stated that she wanted to sign out AGAINST MEDICAL ADVICE. We had a long conversation with the patient about risk and benefits including the need for abdominal surgery, sepsis, bacteremia, and . Despite this she wished to proceed with sign out AGAINST MEDICAL ADVICE. Therefore we gave the patient a dose of Augmentin here in the emergency department and will send Augmentin to the pharmacy for her to continue taking. Strict return precautions have been given to the patient acknowledges understanding that she is welcome to return anytime to the hospital for further care of her condition. Critical Care <Farheen Gilbert, MOLDING PRESS OPERATOR - Last Filed: 05/05/25 19:23> Critical Care Time Critical Care Time: No
[2025-05-05 16:37] LABS: Bacteria,Urine 2+ /lpf
[2025-05-05 16:38] LABS: Mucus,Urine 2+ /lpf
--- NOTE | 2025-05-05 16:40 | CT_ITS ---
PROCEDURE INFORMATION: Exam: CTA Abdomen and Pelvis With Contrast Exam date and time: 05/05/2025 5:24 PM Age: 59 years old Clinical indication: Abdominal pain; Other: Back pain; Additional info: Post prandial abdominal pain TECHNIQUE: Imaging protocol: Computed tomographic angiography of the abdomen and pelvis with contrast. Exam focused on the arteries. 3D rendering (Not supervised by radiologist): MIP and/or 3D reconstructed images were created by the technologist. Radiation optimization: All CT scans at this facility use at least one of these dose optimization techniques: automated exposure control; mA and/or kV adjustment per patient size (includes targeted exams where dose is matched to clinical indication); or iterative reconstruction. Contrast material: ISOSVUE; Contrast volume: 80 ml; Contrast route: INTRAVENOUS (IV); COMPARISON: CT ABDOMEN PELVIS WO CON 08/07/2023 8:02 AM FINDINGS: Aorta: No aortic aneurysm. No aortic dissection. Celiac and mesenteric arteries: No occlusion or significant stenosis. Renal arteries: No occlusion or significant stenosis. Incidental accessory right renal artery. Right iliac arteries: No occlusion or significant stenosis. Left iliac arteries: No occlusion or significant stenosis. Other arteries: Mild atherosclerotic disease is evident. Liver: Hepatic steatosis is evident. Benign liver calcification. Gallbladder and biliary ducts: Unremarkable. No calcified stones. No ductal dilation. Pancreas: Unremarkable. No mass. No ductal dilation. Spleen: Unremarkable. No splenomegaly. Adrenal glands: Unremarkable. No mass. Kidneys and ureters: Unremarkable. No solid mass. No hydronephrosis. Stomach and bowel: Fatty infiltration of the wall of the distal ileum and colon is suspicious for prior recurrent/chronic inflammation. No convincing acute inflammatory process in this region. Prior inflammatory bowel disease is conceivable. Severely inflamed sigmoid colon with phlegmon or early abscess in the wall of the sigmoid colon, measuring 1.3 x 2.1 cm. This is likely secondary to diverticulitis. Significant adjacent inflammation without evidence of perforation. Appendix: Normal appendix. Intraperitoneal space: Unremarkable. No free air. No significant fluid collection. Lymph nodes: Unremarkable. No enlarged lymph nodes. Urinary bladder: Unremarkable. No mass. Reproductive: Unremarkable as visualized. Bones/joints: Moderate disc space height loss at L5/S1. Facet joint degenerative changes are present. Soft tissues: Unremarkable. IMPRESSION: 1. Severely inflamed sigmoid colon with phlegmon or early abscess in the wall of the sigmoid colon, measuring 1.3 x 2.1 cm. This is likely secondary to diverticulitis. Significant adjacent inflammation without evidence of perforation. 2. No evidence of mesenteric arterial insufficiency.
[2025-05-05 17:03] LABS: Hematocrit 36.8 % (37.0-47.0); Hemoglobin 12.3 g/dL (12.2-16.2); Immature Granulocytes % 0.3 %; Mean Corpuscular HGB Conc 33.4 g/dL (31.8-35.4); Mean Corpuscular Hemoglobin 32.9 pg (27.0-31.2); Mean Corpuscular Volume 98.4 fl (81-99); Nucleated Red Blood Cells % 0 %; Platelet Count 359 K/mm3 (142-424); Red Blood Count 3.74 M/mm3 (4.20-5.40); Red Cell Distribution Width-SD 44.9 fL; White Blood Count 19.1 K/mm3 (4.8-10.8)
[2025-05-05 17:11] LABS: Alanine Aminotransferase 47 U/L (12-78); Albumin Level 4.3 g/dl (3.5-5.0); Albumin/Globulin Ratio 1.3 (1.1-1.8); Alkaline Phosphatase 96 U/L (38-126); Anion Gap 10.8 mEq/L (5-15); Aspartate Amino Transferase 41 U/L (14-36); Bilirubin,Total 0.8 mg/dl (0.2-1.3); Blood Urea Nitrogen 17 mg/dl (7-17); Calcium 8.9 mg/dl (8.4-10.2); Carbon Dioxide 27 mmol/L (22.0-30.0); Chloride 103 mmol/L (98-107); Creatinine Clearance Estimated 116 mL/min (50-200); Creatinine,Serum 0.60 mg/dl (0.52-1.04); Estimated Glomerular Filt Rate 102 ml/min (>60); GFR (African American) 124 ML/MIN (>60); Globulin 3.3 g/dL (1.3-3.2); Glucose 114 mg/dl (74-100); Lipase 52 U/L (23-300); Magnesium 1.9 mg/dl (1.6-2.3); Potassium 3.8 mmoL/L (3.5-5.1); Sodium 137 mmol/L (136-145); Total Protein,Serum 7.6 g/dl (6.3-8.2)
[2025-05-05 17:28] LABS: Troponin I < 0.01 ng/ml (0.00-0.034)
[2025-05-05] MEDS: 0.9 % SODIUM CHLORIDE 50 ML VIAL IV (17:35)
[2025-05-05] MEDS: SODIUM CHLORIDE 0.9% 10ML SYR (RAD ONLY) 10 ML IV (17:35)
[2025-05-05] MEDS: IOPAMIDOL-370 (76%);100ML BOTTLE 80 ML IV (17:35)
[2025-05-05 18:25] LABS: Total Cells Counted 100
[2025-05-05 18:26] LABS: RBC Morphology Normal
[2025-05-05 18:51] LABS: Hepatitis C Ab Qual. W/ RFX NEGATIVE (Negative)
--- NOTE | 2025-05-05 18:53 | PC.NURSE ---
Patient attempted to walk out of ER to go smoke with IV still in place. This nurse stopped patient and explained to her that we are a non smoking facility and could not allow her to go out to smoke. Offered her a nicotine patch. Patient refused stating she would just sign out AMA and follow up with her PCP tomorrow. Explained all the risks to patient and notified MD.
--- NOTE | 2025-05-05 19:00 | PC.NURSE ---
Tie Worker notified of need for bed.
[2025-05-05] MEDS: AMOXICILLIN/CLAVULANATE POTASSIUM 875/125MG TABLET 1 EACH PO (19:24)
== END 2025-05-05 19:35 | disposition left against medical advice (07) ==
PROVIDERS: Nurse Practitioner Acute Care; Emergency Provider Student in an Organized Health Care Education/Training Program; PCP Nurse Practitioner Family
DX: K57.33 Diverticulitis of large intestine without perforation or abscess with bleeding (principal); R30.0 Dysuria; F17.210 Nicotine dependence, cigarettes, uncomplicated
CPT/HCPCS: 74174; 80053; 81001; 83690; 83735; 84484; 85007; 85025; 86803; 87086; 87389; 99285; Q9967

== ENCOUNTER 2025-05-06 17:43 | Inpatient (IN) | payer OTHER, SELFPAY ==
[2025-05-06] VITALS (7 sets, daily range): BP systolic 120–137; BP diastolic 64–80; PULSE 65–85; RESP 18; TEMP 36.5–37.2; O2SAT 95–100; BMI 25.8; BMI 27.4
--- NOTE | 2025-05-06 18:03 | ED_ITS ---
<Statement entered by Latonia Rojas MD - 05/06/25 23:23> I was consulted by the BELLE, and we discussed the complexity of the problems being addressed. I approved the treatment and management plan for this patient's care in the emergency department, thus performing a substantive portion of the medical decision making. Latonia Rojas MD, RENEE, FACEP Discharge Plan Disposition Chief Complaint: Abdominal Pain Prescriptions Prescriptions: No Action prednisone 20 mg tablet 20 mg PO BID Qty: 10 0RF Rx Instructions: administer with food or milk acyclovir 400 mg tablet 400 mg PO QID 7 Days Qty: 28 0RF naproxen 500 MG tablet 500 mg PO Q8 10 Days Qty: 30 0RF amoxicillin-pot clavulanate [Augmentin] 500-125 mg tablet 1 tab PO BID Qty: 20 0RF Referrals Follow up/Referrals: Jose Quintanilla APRN [Primary Care Provider, Medical] - See instructions Instructions Patient Instructions: DI for Acute Abdominal Pain Print Language Print Language: Syriac Discharge ED Provider: Latonia Rojas General Adult HPI General Chief complaint: Abdominal Pain Stated complaint: Abdominal pain Time Seen by Provider: 05/06/25 17:45 History of Present Illness HPI narrative: Sharon Corrigan is a 59-year-old female who presents emergency room tonight with complaints of ongoing abdominal pain. Patient initially presented yesterday with complaints of pressure that was dysuria and cramping with bowel movements. Patient's symptoms started a day or 2 ago. Patient was seen yesterday and diagnosed with a sigmoid diverticulum abscess without perforation. She left AMA yesterday because she stated she was not prepared to stay in the hospital . 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 Denies any fever. States that she had a bowel movement this morning with some discomfort then. Denies any abdominal pain at this time. No fever noted. Denies any chest pain, cough, fever does not take any blood thinners. Continues to smoke cigarettes. Please note that the above description of symptoms, and this electronic medical record under categorization of recalled from ER triage doctor by RN are reflective of an initial nursing assessment, however, is not reflective of my full history and physical exam that was personally taken and clarified. Consequentially, this proceeding description of symptoms, which may include the patient's cauterized chief complaint in the EMR, do not reflect my personal clinical impression, and the ultimate description of the history of present illness stated complaints should be deferred to this section of this note. Unless stated otherwise were congruent with the section of the note, additional signs, symptoms, or incongruence can be interpreted as in or accurate with my clinical impression. Related Data Previous Rx's ?Medication ?Instructions ?Recorded naproxen 500 mg tablet 500 mg PO Q8 10 days #30 tab s 05/22/21 acyclovir 400 mg tablet 400 mg PO QID 7 days #28 tab s 10/16/24 prednisone 20 mg tablet 20 mg PO BID #10 tabs amoxicillin 500 mg-potassium 1 tab PO BID #20 tabs clavulanate 125 mg tablet (Augmentin) Allergies Allergy/AdvReac Type Severity Reaction Status Date / Time No Known Allergies Allergy Verified 10/16/24 13:43 [facility] Disclaimer: The information contained in this section may have been updated after the patient was seen, as this information can be updated by other users. Social History (Reviewed 10/16/24 @ 14:27 by Jose Quintanilla ([facility]), CURATOR) Smoking Status: Unknown if ever smoked alcohol intake: never current occupational status: unemployed Travel in the last 8 weeks?: None Have you lived/traveled outside US in past 30 days?: No Contact w/someone who lives/traveled outside US past 30 days?: No Exposure to someone with infectious disease in past 14 days?: No Do you have a fever (greater than 100.4 F or 38 C)?: No Have you tested positive for COVID-19?: No Exposed to someone with COVID-19 in past 14 days?: No Do you have a sore throat?: No Do you have a cough?: No Do you have any weakness?: No Do you have any diarrhea?: No Are you experiencing any unusual bleeding?: No Do you have any muscle aches/pain?: No Do you have any abdominal pain?: No Are you experiencing loss of taste or smell?: No Other Medical History Have you received the Flu Vaccine for this season: No Have you received the Pneumonia Vaccine: No ROS Obtained: Yes All systems reviewed & no additional complaints except as documented Physical Exam General General appearance: alert and in no apparent distress Head Head exam: atraumatic, normocephalic and normal inspection Eye Eye exam: Present normal appearance, PERRL and EOMI ENT ENT exam: Present normal exam, normal oropharynx, mucous membranes moist, TM's normal bilaterally and normal external ear exam Neck Neck exam: Present normal inspection, full ROM and trachea midline; Absent meningismus or lymphadenopathy Chest Chest inspection: Present normal inspection and symmetric chest wall rise; Absent tenderness Respiratory Respiratory exam: Present normal lung sounds bilaterally; Absent respiratory distress Cardiovascular Cardiovascular exam: Present regular rate and normal rhythm; Absent JVD Abdominal Exam Abdominal exam: Present soft and normal bowel sounds; Absent distention, tenderness or guarding Extremities Exam Extremities exam: Present normal inspection, full ROM and normal capillary refill; Absent calf tenderness Back Exam Back exam: Present normal inspection; Absent tenderness Neurological Exam Neurological exam: Present alert and oriented X3 Psychiatric Psychiatric exam: Present normal affect and normal mood Skin Skin exam: Present warm, dry, intact and normal color Lymphatic Lymphatic Findings: no adenopathy Medical Decision Making Medical Records Screening: Per USPSTF and CDC recommendations, given the prevalence of disease in our region, it is our hospital?s policy to screen for HIV and viral Hepatitis for all patients aged 18 and over and those with ongoing risk factors. Harsha Inquiry Pt receiving controlled substance: No Vital Signs: 05/06/25 17:45 05/06/25 17:45 05/06/25 18:00 Temperature 97.7 F 97.7 F Temperature Source Oral Pulse Rate 85 76 Pulse Rate [Right] 85 Respiratory Rate 18 18 Blood Pressure 137/80 120/80 Blood Pressure [Right Arm] 137/80 Blood Pressure Mean [Right Arm] 99 02 Sat by Pulse Oximetry 100 100 97 05/06/25 18:30 05/06/25 19:00 Temperature Temperature Source Pulse Rate 72 65 Pulse Rate [Right] Respiratory Rate Blood Pressure 126/64 122/66 Blood Pressure [Right Arm] Blood Pressure Mean [Right Arm] 02 Sat by Pulse Oximetry 96 96 Lab Data Lab Results 05/06/25 18:27: WBC 19.6 H, RBC 3.83 L, Hgb 12.7, Hct 37.1, MCV 96.9, MCH 33.2 H , MCHC 34.2, RDW 12.5, Plt Count 364, MPV 10.7 H, Neut % (Auto) 80.8 H, Lymph % (Auto) 11.5, [place] % (Auto) 6.7, Eos % (Auto) 0.4, Baso % (Auto) 0.3, Neut # (Auto) 15.8 H, Lymph # (Auto) 2.2, [place] # (Auto) 1.3 H, Eos # (Auto) 0.1, Baso # (Auto) 0.1, Sodium 134 L, Potassium 4.4, Chloride 102, Carbon Dioxide 23, Anion Gap 13.4, BUN 17, Creatinine 0.60, Estimated Creat Clear 116, Estimated GFR 102, Est GFR ( Amer) 124, Glucose 186 H, Lactate 1.1, Calcium 8.7, Total Bilirubin 1.2, AST 41 H, ALT 37, Alkaline Phosphatase 65, Total Protein 7.3, Albumin 4.1, Globulin 3.2, Albumin/Globulin Ratio 1.3 05/06/25 18:27 05/06/25 18:27 Orders (Tests/Meds): ED MEDICATIONS Discontinued Medications Generic Name Dose Route Start Last Admin Trade Name Freq PRN Reason Stop Dose Admin Sodium Chloride 500 mls @ 999 mls/hr 05/06/25 18:00 05/06/25 18:35 Sod Chlor 0.9% 1000ml Bag IV 05/06/25 18:30 999 mls/hr .Q31M ONE Administration Piperacillin Sod/Tazobactam 100 mls @ 200 mls/hr 05/06/25 18:01 05/06/25 18:34 Sod 4.5 gm/ Sodium Chloride IV 05/06/25 18:30 200 mls/hr ONCE ONE Administration ORDERS Category Date Time Status KUB (single view) [XR KUB] Stat Exams 05/06/25 19:07 Ordered CBC w/Auto Diff [Complete Blood Count Auto Diff] Stat Lab 05/06/25 18:27 Completed CMP [Comprehensive Metabolic Panel] Stat Lab 05/06/25 18:27 Completed Lactic Acid Stat Lab 05/06/25 18:27 Completed Medical Decision Narrative: In summary patient is an 59-year-old female who presents emergency department for evaluation of abdominal pain. Patient is hemodynamically stable upon arrival, afebrile. Unremarkable nonfocal physical exam. Differential diagnosis includes sigmoid diverticulum abscess. Initial workup will be conducted with hematologic labs. Initial interventions include crystalloid bolus, initiation of Zosyn. Initial workup reviewed by me showed a leukocytosis of 19.6, AST of 41, sodium at 134. Spoke with general surgery who was agreeable to consult on this patient, recommended continuing Zosyn and clear liquid diet for now. Case was discussed with Dr. Cary with the hospital medicine team who graciously accepted this patient for admission. Critical Care Critical Care Time Critical Care Time: No
[2025-05-06 18:34] LABS: Hematocrit 37.1 % (37.0-47.0); Hemoglobin 12.7 g/dL (12.2-16.2); Immature Granulocytes % 0.3 %; Mean Corpuscular HGB Conc 34.2 g/dL (31.8-35.4); Mean Corpuscular Hemoglobin 33.2 pg (27.0-31.2); Mean Corpuscular Volume 96.9 fl (81-99); Nucleated Red Blood Cells % 0 %; Platelet Count 364 K/mm3 (142-424); Red Blood Count 3.83 M/mm3 (4.20-5.40); Red Cell Distribution Width-SD 44.4 fL; White Blood Count 19.6 K/mm3 (4.8-10.8)
[2025-05-06] MEDS: PIPERACILLIN/TAZO 4.5 GM in 0.9 % SODIUM CHLORIDE 100 ML IV (18:34)
[2025-05-06] MEDS: 0.9 % SODIUM CHLORIDE 1000ML 500 ML 999 ML IV (18:35)
[2025-05-06 18:51] LABS: Alanine Aminotransferase 37 U/L (12-78); Albumin Level 4.1 g/dl (3.5-5.0); Albumin/Globulin Ratio 1.3 (1.1-1.8); Alkaline Phosphatase 65 U/L (38-126); Anion Gap 13.4 mEq/L (5-15); Aspartate Amino Transferase 41 U/L (14-36); Bilirubin,Total 1.2 mg/dl (0.2-1.3); Blood Urea Nitrogen 17 mg/dl (7-17); Calcium 8.7 mg/dl (8.4-10.2); Carbon Dioxide 23 mmol/L (22.0-30.0); Chloride 102 mmol/L (98-107); Creatinine Clearance Estimated 116 mL/min (50-200); Creatinine,Serum 0.60 mg/dl (0.52-1.04); Estimated Glomerular Filt Rate 102 ml/min (>60); GFR (African American) 124 ML/MIN (>60); Globulin 3.2 g/dL (1.3-3.2); Glucose 186 mg/dl (74-100); Potassium 4.4 mmoL/L (3.5-5.1); Sodium 134 mmol/L (136-145); Total Protein,Serum 7.3 g/dl (6.3-8.2)
--- NOTE | 2025-05-06 19:07 | XR_ITS ---
PROCEDURE INFORMATION: Exam: XR Abdomen Exam date and time: 05/06/2025 7:40 PM Age: 59 years old Clinical indication: Other: Recent dx of sig abscess, TECHNIQUE: Imaging protocol: Radiologic exam of the abdomen. Views: Frontal supine view of the abdomen. 1 View. COMPARISON: CT ANGIO ABDOMEN PELVIS 05/05/2025 5:24 PM FINDINGS: Gastrointestinal tract: Nonobstructive bowel gas pattern. No bowel dilation. No pneumatosis. Intraperitoneal space: No free air. Bones/joints: Unremarkable. IMPRESSION: No free air. No pneumatosis.
--- NOTE | 2025-05-06 19:34 | P.HP_ITS ---
History of Present Illness *Admission Date: 05/06/25 *Reason for visit:: ABD pain *History of present illness: 59 yo Patient without significant past medical history presents with abdominal pain x 2 to 3 days. Describes abdominal pain as bilateral groin, excruciatingly uncomfortable, intermittent, worsening with time. CT abdomen/pelvis done in the emergency room 05/05 showed sigmoid diverticular abscess 1.3 x 2.1 cm. Patient had family in town, so elected to leave the emergency room AMA 05/05. Patient now represents because my mom may become back. Patient's mother present with patient in emergency room. Denies chest pain, palpitations, shortness of breath, productive cough, GI bleeding, recent falls, recent MVAs, known sick contacts. Surgery consulted yesterday during previous emergency room evaluation and recommended admission, clear liquid diet, and IV antibiotics. [facility] Disclaimer: The information contained in this section may have been updated after the andrew nt was seen, as this information can be updated by other users. 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[employer]) Smoking Status: Unknown if ever smoked alcohol intake: never current occupational status: unemployed Travel in the last 8 weeks?: None Have you lived/traveled outside US in past 30 days?: No Contact w/someone who lives/traveled outside US past 30 days?: No Exposure to someone with infectious disease in past 14 days?: No Do you have a fever (greater than 100.4 F or 38 C)?: No Have you tested positive for COVID-19?: No Exposed to someone with COVID-19 in past 14 days?: No Do you have a sore throat?: No Do you have a cough?: No Do you have any weakness?: No Do you have any diarrhea?: No Are you experiencing any unusual bleeding?: No Do you have any muscle aches/pain?: No Do you have any abdominal pain?: No Are you experiencing loss of taste or smell?: No Other Medical History Have you received the Flu Vaccine for this season: No Have you received the Pneumonia Vaccine: No Review of Systems Review of Systems Review of systems:: pertinent systems reviewed and negative unless documented below Review of systems (narrative): See HPI Meds Home Medications and Allergies Home Medications ?Medication ?Instructions ?Recorded ?Confirmed ?Type naproxen 500 mg tablet 500 mg PO Q8 10 days #30 tab s 05/22/21 10/16/24 Rx acyclovir 400 mg tablet 400 mg PO QID 7 days #28 tab s 10/16/24 10/16/24 Rx prednisone 20 mg tablet 20 mg PO BID #10 tabs 10/16/24 Rx amoxicillin 500 mg-potassium 1 tab PO BID #20 tabs Rx clavulanate 125 mg tablet (Augmentin) New Prescriptions to Start Prescriptions: Allergies Allergy/AdvReac Type Severity Reaction Status Date / Time No Known Allergies Allergy Verified 10/16/24 13:43 Exam Data for Last 24 hours Vital signs and Labs for Last 24 Hours: Temp Pulse Resp BP Pulse Ox O2 Del Method 98.5 F 78 18 122/66 96 Room Air 05/06/25 19:11 05/06/25 19:11 05/06/25 19:11 05/06/25 19:11 05/06/25 19:10 05/06/25 19:11 Laboratory Results - last 24 hr 05/06/25 18:27: WBC 19.6 H, RBC 3.83 L, Hgb 12.7, Hct 37.1, MCV 96.9, MCH 33.2 H , MCHC 34.2, RDW 12.5, Plt Count 364, MPV 10.7 H, Neut % (Auto) 80.8 H, Lymph % (Auto) 11.5, [place] % (Auto) 6.7, Eos % (Auto) 0.4, Baso % (Auto) 0.3, Neut # (Auto) 15.8 H, Lymph # (Auto) 2.2, [place] # (Auto) 1.3 H, Eos # (Auto) 0.1, Baso # (Auto) 0.1, Sodium 134 L, Potassium 4.4, Chloride 102, Carbon Dioxide 23, Anion Gap 13.4, BUN 17, Creatinine 0.60, Estimated Creat Clear 116, Estimated GFR 102, Est GFR ( Amer) 124, Glucose 186 H, Lactate 1.1, Calcium 8.7, Total Bilirubin 1.2, AST 41 H, ALT 37, Alkaline Phosphatase 65, Total Protein 7.3, Albumin 4.1, Globulin 3.2, Albumin/Globulin Ratio 1.3 I & O for Last 24 hours: Intake & Output 05/03/25 05/04/25 05/05/25 05/06/25 23:59 23:59 23:59 23:59 Intake Total 600 / 600 Balance 600 / 600 Weight 72.575 kg *Routine HEENT Exam Head: Present normocephalic Eye: Present EOMI ENT: Present mucous membranes moist *Routine Neck Exam Neck: Present supple and full ROM *Routine Respiratory Exam Respiratory: Present CTA bilaterally *Routine Cardiovascular Exam Cardiovascular: Present RRR, Normal S1 and Normal S2 *Routine Abdominal Exam Abdominal: Present soft, normoactive bowel sounds, tenderness and guarding; Absent rebound *Routine Rectal Exam Rectal:: deferred *Routine Genitalia Exam Genitalia:: deferred *Routine Extremities Exam Extremities: Present full ROM *Routine Skin Exam Skin: Present intact *Routine Neurological Exam Neurological: Present alert and oriented X3 Assessment and Plan *Assessment and plan (1) Abdominal abscess: Status: Acute Category: Medical (2) Abscess of sigmoid colon due to diverticulitis: Status: Acute Category: Medical Code(s): K57.20 - Diverticulitis of large intestine with perforation and abscess without bleeding Plan 59-year-old without significant past medical history presents with worsening abdominal discomfort. Patient diagnosed with diverticular abscess 05/05 in emergency room, but elected to leave AMA and spend [place] with family. Now Magalys presents with persistent abdominal discomfort urged to revisit emergency room by her mother. Problems as listed below: Sigmoid diverticular abscess: ? 05/05 CT abdomen/pelvis shows 1.3 x 2.1 cm sigmoid colon abscess. WBC 05/05 = 19.1 versus WBC 04/2619.6. Zosyn 4.5 g x 1 in emergency room then transition to Zosyn 3.375 IV every 6 x 7 days. Surgery already consulted yesterday and recommended clear liquid diet, IV antibiotics. Reconsult surgery to see during hospitalization. Morphine 2 mg IV every 6 as needed severe pain. Oxycodone 5 mg p.o. every 4 as needed moderate pain. Tylenol 650 p.o. Q4 as needed pain or fever. ? NA 134, K4.4, CL 102, serum CO2 23, BUN 17, CR 0.60, GLU 186. Transaminases slightly elevated with AST 05/06 = 41 versus AST 05/05 = 41, ALT 05/06 = 37 versus 05/05 = 47, normal alk phos 65. Patient's transaminase elevations appear clinically insignificant. If abdominal pain worsens, will reconsider repeating transaminases during hospitalization. UA 05/05 specific gravity 1.030, negative glucose, negative nitrate/LE, +2 bacteria. With high specific gravity patient appears slightly dehydrated. Will place patient on normal saline 125 cc/h x 24 hours then reevaluate. PPx SCDs CODE STATUS: Full FEN clears for surgery advice during ED consultation 05/05 MDM ? Patient's mother acted as independent historian during the interview with patient today ? I spoke with the emergency room provider about patient today during ED admission assessment ? I made decision to admit patient to hospital for IV antibiotic management of small sigmoid diverticular abscess. 35 minutes of total care time spent with patient by myself Jai Cary MD 05/06/2025 Discharge planning patient will likely spend over 2 midnights in hospital during this hospitalization.
--- NOTE | 2025-05-06 19:46 | PC.NURSE ---
report called to ABHISHEK Arellano
[2025-05-06] MEDS: 0.9 % SODIUM CHLORIDE 1000ML 1,000 ML 125 ML IV (20:42)
[2025-05-06] MEDS: NICOTINE 21MG/24HR PATCH 21 MG TD (20:43)
--- NOTE | 2025-05-06 22:05 | PC.NURSE ---
Pt arrived to floor at 1957
[2025-05-07] MEDS: PIPERCILLIN/TAZO 3.375 GM in 0.9 % SODIUM CHLORIDE 50 ML IV ×4 (01:32→21:20)
[2025-05-07 04:00] VITALS: BP 115/77; PULSE 63; RESP 16; TEMP 36.9; O2SAT 95
[2025-05-07] MEDS: 0.9 % SODIUM CHLORIDE 1000ML 1,000 ML 125 ML IV ×2 (05:53→15:47)
[2025-05-07 07:21] LABS: Hematocrit 37.2 % (37.0-47.0); Hemoglobin 12.7 g/dL (12.2-16.2); Immature Granulocytes % 0.5 %; Mean Corpuscular HGB Conc 34.1 g/dL (31.8-35.4); Mean Corpuscular Hemoglobin 33.6 pg (27.0-31.2); Mean Corpuscular Volume 98.4 fl (81-99); Nucleated Red Blood Cells % 0 %; Platelet Count 398 K/mm3 (142-424); Red Blood Count 3.78 M/mm3 (4.20-5.40); Red Cell Distribution Width-SD 44.3 fL; White Blood Count 15.4 K/mm3 (4.8-10.8)
[2025-05-07 07:22] LABS: Chloride 106 mmol/L (98-107); Potassium 3.5 mmoL/L (3.5-5.1); Sodium 140 mmol/L (136-145)
[2025-05-07 07:25] LABS: Anion Gap 9.5 mEq/L (5-15); Blood Urea Nitrogen 12 mg/dl (7-17); Calcium 9.1 mg/dl (8.4-10.2); Carbon Dioxide 28 mmol/L (22.0-30.0); Creatinine Clearance Estimated 106 mL/min (50-200); Creatinine,Serum 0.70 mg/dl (0.52-1.04); Estimated Glomerular Filt Rate 86 ml/min (>60); GFR (African American) 104 ML/MIN (>60); Glucose 118 mg/dl (74-100)
[2025-05-07 07:26] LABS: Magnesium 2.3 mg/dl (1.6-2.3)
[2025-05-07 08:00] VITALS: BP 118/71; PULSE 70; RESP 18; TEMP 36.8; O2SAT 95
[2025-05-07 08:35] LABS: Total Cells Counted 100
[2025-05-07 08:36] LABS: RBC Morphology Normal
--- NOTE | 2025-05-07 08:59 | P.CONS_ITS ---
History of Present Illness *Admission Date: 05/06/25 *Reason for visit:: Sigmoid diverticulitis *History of present illness: This a 59-year-old female seen in consultation after recent evaluation in the emergency department. She was diagnosed with likely diverticulitis with early/developing abscess. She was admitted to the Hospitalist Service and the surgical service was consulted. She currently feels better . She is continuing to pass gas. Currently with minimal abdominal pain. No nausea. She states that she has never had a colonoscopy. Forwarded from admission H&P: 59 yo Patient without significant past medical history presents with abdominal pain x 2 to 3 days. Describes abdominal pain as bilateral groin, excruciatingly uncomfortable, intermittent, worsening with time. CT abdomen/pelvis done in the emergency room 05/05 showed sigmoid diverticular abscess 1.3 x 2.1 cm. Patient had family in town, so elected to leave the emergency room AMA 05/05. Patient now represents because my mom may become back. Patient's mother present with patient in emergency room. Denies chest pain, palpitations, shortness of breath, productive cough, GI bleeding, recent falls, recent MVAs, known sick contacts. Surgery consulted yesterday during previous emergency room evaluation and recommended admission, clear liquid diet, and IV antibiotics. FORMERLY [facility], [facility]1983 PFS Disclaimer: The information contained in this section may have been updated after the patient was seen, as this information can be updated by other users. Social History (Reviewed 10/16/24 @ 14:27 by Jose Quintanilla ([facility]), [employer]) Smoking Status: Unknown if ever smoked alcohol intake: never current occupational status: unemployed Travel in the last 8 weeks?: None Have you lived/traveled outside US in past 30 days?: No Contact w/someone who lives/traveled outside US past 30 days?: No Exposure to someone with infectious disease in past 14 days?: No Do you have a fever (greater than 100.4 F or 38 C)?: No Have you tested positive for COVID-19?: No Exposed to someone with COVID-19 in past 14 days?: No Do you have a sore throat?: No Do you have a cough?: No Do you have any weakness?: No Do you have any diarrhea?: No Are you experiencing any unusual bleeding?: No Do you have any muscle aches/pain?: No Do you have any abdominal pain?: No Are you experiencing loss of taste or smell?: No Review of Systems Review of Systems Review of systems:: pertinent systems reviewed and negative unless documented below *Gastrointestinal Gastrointestinal: Reports as per [facility] Meds Home Medications and Allergies New Prescriptions to Start Prescriptions: Allergies Allergy/AdvReac Type Severity Reaction Status Date / Time No Known Allergies Allergy Verified 10/16/24 13:43 Exam (Inpt) Vital signs and Labs for Last 24 Hours: Temp Pulse Resp BP Pulse Ox O2 Del Method 98.3 F 70 18 118/71 95 Nasal Cannula 05/07/25 08:00 05/07/25 08:00 05/07/25 08:00 05/07/25 08:00 05/07/25 08:00 05/07/25 08:00 Laboratory Results - last 24 hr 05/06/25 18:27: WBC 19.6 H, RBC 3.83 L, Hgb 12.7, Hct 37.1, MCV 96.9, MCH 33.2 H , MCHC 34.2, RDW 12.5, Plt Count 364, MPV 10.7 H, Neut % (Auto) 80.8 H, Lymph % (Auto) 11.5, Phillips % (Auto) 6.7, Eos % (Auto) 0.4, Baso % (Auto) 0.3, Neut # (Auto) 15.8 H, Lymph # (Auto) 2.2, Phillips # (Auto) 1.3 H, Eos # (Auto) 0.1, Baso # (Auto) 0.1, Sodium 134 L, Potassium 4.4, Chloride 102, Carbon Dioxide 23, Anion Gap 13.4, BUN 17, Creatinine 0.60, Estimated Creat Clear 116, Estimated GFR 102, Est GFR ( Amer) 124, Glucose 186 H, Lactate 1.1, Calcium 8.7, Total Bilirubin 1.2, AST 41 H, ALT 37, Alkaline Phosphatase 65, Total Protein 7.3, Albumin 4.1, Globulin 3.2, Albumin/Globulin Ratio 1.3 05/07/25 06:25: WBC 15.4 H, RBC 3.78 L, Hgb 12.7, Hct 37.2, MCV 98.4, MCH 33.6 H , MCHC 34.1, RDW 12.2, Plt Count 398, MPV 10.5 H, Neut % (Auto) 69.3, Lymph % (Auto) 18.1, Phillips % (Auto) 11.0 H, Eos % (Auto) 0.8, Baso % (Auto) 0.3, Neut # (Auto) 10.7 H, Lymph # (Auto) 2.8, [place] # (Auto) 1.7 H, Eos # (Auto) 0.1, Baso # (Auto) 0.0, Total Counted 100, Neutrophils % (Manual) 64, Lymphocytes % (Manual) 23, Monocytes % (Manual) 12 H, Basophils % (Manual) 1.0, Platelet Estimate Normal, RBC Morphology Normal, Sodium 140, Potassium 3.5 D, Chloride 106, Carbon Dioxide 28, Anion Gap 9.5, BUN 12 D, Creatinine 0.70, Estimated Creat Clear 106, Estimated GFR 86, Est GFR ( Amer) 104, Glucose 118 H D, Calcium 9.1, Magnesium 2.3 D I & O for Labs for Last 24 Hours: Intake & Output 05/04/25 05/05/25 05/06/25 05/07/25 11:59 11:59 11:59 11:59 Intake Total 2610 / 2610 Output Total 0 / 0 Balance 2610 / 2610 Weight 170 lb 4.8 oz Constitutional: no acute distress Respiratory: Absent respiratory distress Cardiac: Absent Tachycardia GI: Present soft and tenderness (Mild tenderness in the mid/lower abdomen.); Absent guarding or rigidity Results Labs 05/07/25 06:25 05/07/25 06:25 Labs: Laboratory Results - last 24 hr 05/06/25 18:27: WBC 19.6 H, RBC 3.83 L, Hgb 12.7, Hct 37.1, MCV 96.9, MCH 33.2 H , MCHC 34.2, RDW 12.5, Plt Count 364, MPV 10.7 H, Neut % (Auto) 80.8 H, Lymph % (Auto) 11.5, [place] % (Auto) 6.7, Eos % (Auto) 0.4, Baso % (Auto) 0.3, Neut # (Auto) 15.8 H, Lymph # (Auto) 2.2, [place] # (Auto) 1.3 H, Eos # (Auto) 0.1, Baso # (Auto) 0.1, Sodium 134 L, Potassium 4.4, Chloride 102, Carbon Dioxide 23, Anion Gap 13.4, BUN 17, Creatinine 0.60, Estimated Creat Clear 116, Estimated GFR 102, Est GFR ( Amer) 124, Glucose 186 H, Lactate 1.1, Calcium 8.7, Total Bilirubin 1.2, AST 41 H, ALT 37, Alkaline Phosphatase 65, Total Protein 7.3, Albumin 4.1, Globulin 3.2, Albumin/Globulin Ratio 1.3 05/07/25 06:25: WBC 15.4 H, RBC 3.78 L, Hgb 12.7, Hct 37.2, MCV 98.4, MCH 33.6 H , MCHC 34.1, RDW 12.2, Plt Count 398, MPV 10.5 H, Neut % (Auto) 69.3, Lymph % (Auto) 18.1, Phillips % (Auto) 11.0 H, Eos % (Auto) 0.8, Baso % (Auto) 0.3, Neut # (Auto) 10.7 H, Lymph # (Auto) 2.8, [place] # (Auto) 1.7 H, Eos # (Auto) 0.1, Baso # (Auto) 0.0, Total Counted 100, Neutrophils % (Manual) 64, Lymphocytes % (Manual) 23, Monocytes % (Manual) 12 H, Basophils % (Manual) 1.0, Platelet Estimate Normal, RBC Morphology Normal, Sodium 140, Potassium 3.5 D, Chloride 106, Carbon Dioxide 28, Anion Gap 9.5, BUN 12 D, Creatinine 0.70, Estimated Creat Clear 106, Estimated GFR 86, Est GFR ( Amer) 104, Glucose 118 H D, Calcium 9.1, Magnesium 2.3 D Imaging Abdominal x-ray: report reviewed and image reviewed CT scan - abdomen: report reviewed and image reviewed CT scan - pelvis: report reviewed and image reviewed Additional studies: Abdomen/pelvis CTA dated May 05, 2025 (truncated findings...numbers added for clarity): 1) Fatty infiltration of the wall of the distal ileum and colon is suspicious for prior recurrent/chronic inflammation. No convincing acute inflammatory process in this region. Prior inflammatory bowel disease is conceivable. 2) Severely inflamed sigmoid colon with phlegmon or early abscess in the wall of the sigmoid colon, measuring 1.3 x 2.1 cm. This is likely secondary to diverticulitis. Significant adjacent inflammation without evidence of perforation. Assessment and Plan *Assessment and plan (1) Diverticulitis of large intestine with complication: Problem Comment: Phlegmonous changes and possible early abscess of sigmoid colon Status: Acute Category: Medical Code(s): K57.32 - Diverticulitis of large intestine without perforation or abscess without bleeding Plan: I had a lengthy discussion with the patient concerning the diagnosis of likely complicated diverticulitis with early/developing abscess. Our discussion included the risks and benefits of operative and nonoperative management in both the acute and delayed setting. Our discussion also included the possibility of alternative/additional diagnoses such as neoplasm, inflammatory bowel disease, etc. Initially proceed with continuation of IV antibiotics (likely complete course of PO abx after discharge) Very cautiously advance diet as patient tolerates Unless warranted more acutely...colonoscopy in ~6-8 weeks (2) Abnormal CT scan, colon: Problem Comment: As stated in report, fatty infiltration of the wall of the distal ileum and (right) colon...suspicious for prior recurrent/chronic inflammation....no convincing acute inflammation. Status: Acute Category: Medical Code(s): R93.3 - Abnormal findings on diagnostic imaging of other parts of digestive tract Plan: When patient undergoes planned colonoscopy in the near future...cannulation of ileocecal valve to evaluate the terminal ileum warranted (if possible).
--- NOTE | 2025-05-07 09:31 | HMH.PHAINT1 ---
Pharmacy Intervention Comments: MEDICATION RECONCILIATION COMPLETED ON PATIENT USING EXTERNAL FILL HISTORY FROM PHARMACY. -JUSTIN CABALLERO, [place]
--- NOTE | 2025-05-07 11:41 | HMH.PHAAMS2 ---
- Antimicrobial Stewardship Review culture & sensitivity review Stewardship interventions: culture & sensitivity review (URINE CX NO GROWTH @ 48 HOURS)
--- OUTSIDE RECORDS SUMMARY | 2025-05-07 13:48 | XMS_ITS | Data Portability ---
Author Organization [facility] Address [address] [place] [address] Assessment No assessment recorded. Plan of Treatment Reminders Order Date Submit Date Provider Last Modified By Organization Details Last Modified Time Details Appointments None recorded. Lab rapid strep group A, throat 2023 024 [facility], [address] [place] [address], [id number], 4 18:43:53 rapid SARS CoV + SARS CoV 2 Ag, QL IA, respiratory specimen 2023 024 [facility], [address] [place] [address], [id number], 4 10:54:39 rapid flu (A+B) 2023 024 [facility], [address] [place] [address], [id number], 4 16:43:48 Referral None recorded. Procedures None recorded. Surgeries None recorded. Imaging CT, abdomen + pelvis, w/o contrast 2023 024 [facility] ([facility]), [address], [place], [address], 4 14:04:40 Medication Orders prednisone 20 mg tablet 2023 024 [facility], [address] [facility], [place], [address], 18:43:03 prednisone 20 mg tablet 2023 024 [facility], [address], [address], 18:22:15 Patient TargetsNo targets recorded. Patient InstructionsNo instructions recorded. Reason for Referral None Reported. Results Created Date Observation Date Name Description Value Unit Range Abnormal Flag Note LastModifiedBy Organization Detail LastModifiedTime 06/06/19 24 06/06/2023 rapid flu (A+B) Flu negati ve Not Available [address], [address], 06/06/2023 15:42:51 06/06/19 24 06/06/2023 rapid flu (A+B) Type Both A & B Not Available [address], [address], 06/06/2023 15:42:51 12/30/19 24 12/30/2023 rapid strep group A, throa t Strep negati ve Not Available [address], [address], 12/30/2023 17:55:55 12/30/19 24 12/30/2023 rapid strep group A, throa t Culture No Not Available [address], [address], 12/30/2023 17:55:55 12/31/19 24 12/31/2023 rapid SARS CoV + SARS CoV 2 Ag, QL IA, respi rator y speci men SARS CoV antigen Invali d Not Available [address], [address], 12/30/2023 17:57:23 08/07/19 24 08/07/2023 CT, abdom en + pelvi s, w/o contr ast No observ ation record ed. [facility] (Scheduling) [address], [place], [address], 08/08/2023 14:45:02 05/05/20 25 05/05/2025 CT, angio gram, abdom en + pelvi s, w/ contr ast No observ ation record ed. [facility] [address], [place], [address], 05/06/2025 08:34:38 05/06/2005/06/2025 imagi ng/di agnos tic resul t No observ ation record ed. [facility] [address], [place], [address], 05/06/2025 20:16:12 Result Notes None recorded. Problems No Known [...] Address Organization Details Last Updated DateTime 4 [address].9 6 g 26.1 kg/m2 167.64 cm 98 [degF] 68 /min 95 % 18 /min 122/76 mm[Hg] Nisha Ramesh [place] - [facility] 4 15:37:59 Date Recorded Body height Body mass index (BMI) Body weight Body temperature Heart rate Oxygen saturation Respiratory rate Pain severity - 0-10 verbal numeric rating [Score] - Reported Systolic And Diastolic Provider Name and Address Organization Details Last Updated DateTime 4 167.64 cm 26.8 kg/m2 90979.3 3 g 98.3 [degF] 76 /min 98 % 18 /min 3 120/74 mm[Hg] Teresa Willingham [place] - [facility] 17:58:07 Social History Question Answer Notes LastModified by Organizat ion Details LastModified Time Tobacco Smoking Status Current Every Day Smoker Nisha Ramesh [place], [place] - [facility] 06/06/2023 15:40:34 Do You [...] Or The Highest Degree You Have Received? [id number] Information not available 06/06/2023 Have There Been Any Changes To Your Family Or Social Situation? No Information no t available 06/06/2023 What Is The Fluoride Status Of Your Home? Unknown Information not available 06/06/2023 Do You Have A Medical Power Of Certified Art Therapist? No Information not available 06/06/2023 What Was [...] Mental Status Question Answer Note LastModified by [email or web address] Details LastModified Time Do you feel stressed (tense, restless, nervous, or anxious, or unable to sleep at night)? [id number] Information not available 06/06/2023 Do you have [...] ICD10 Code Diagnosis IMO Codes Diagnosis Note [id number] Jose Quintanilla APRN [address] [address] 06/06/2023 15:15:51 06/06/2023 16:41:34 Acute upper respiratory infection 02582258 J06.9 Abdominal pain 84687208 R10.9 Hernia of abdominal cavity 24310411 K46.9 r/o hernia or risk of bowel injuryinfo rmed if symptoms return or worsen go to ed last [id number] Jose Quintanilla APRN [address] [address] 12/30/2023 17:34:43 12/30/2023 18:41:43 Pharyngitis [id number] J02.9 Acute bronchitis 0839710 2 J20.9 Acute uppe r respiratory infection 97738726 J06.9 no sign of a bacterial infection. likely viral. viruses can take 7-14 days to run their course. nasal saline and bulb syringe to remove nasal drainage to help with congestion . monitor temp. Tylenol or Motrin as needed for pain or fever. encourage fluids, water, Gatorade, power aide, Pedialyte if /tod dler/child warm salt water gargles warm fluids [...] Member ID Guarantor Name 12/30/2023 1 [employer] [facility] (MEDICAID [facility]) Sharon Canales [id number] Sharon Canales 12/30/2023 MEDICA[place] [facility] [employer] (MEDICAID) Sharon Canales [id number] Sharon Canales Notes Date Note Type Note [...] months Jose Quintanilla APRN [address], [place], [address], [facility] - [facility] 06/06/2023 16:44:11 12/30/2023 text/html ROS as noted in the HPI 58 yr old female presents with bilateral ear pain, sore throat, cough, clear drainage and body aches. Jose Quintanilla APRN [address], [place], [address], [facility] - [facility] 12/30/2023 18:43:27 OBGyn Episode No OBEpisode recorded.
--- NOTE | 2025-05-07 14:54 | EXP.PN ---
Subjective *Date: 05/07/25 *Time: 14:54 Interval history: Patient feeling better today, no abdominal pain. Having bowel movements. WBC down to 15, will continue IV Zosyn and continue medical management for now. Advance to full liquid diet for dinner. Exam Data for Last 24 hours Vital signs and Labs for Last 24 Hours: Temp Pulse Resp BP Pulse Ox O2 Del Method 98.3 F 70 18 118/71 95 Room Air 05/07/25 08:00 05/07/25 08:00 05/07/25 08:00 05/07/25 08:00 05/07/25 08:00 05/07/25 13:00 Laboratory Results - last 24 hr 05/06/25 18:27: WBC 19.6 H, RBC 3.83 L, Hgb 12.7, Hct 37.1, MCV 96.9, MCH 33.2 H, MCHC 34.2, RDW 12.5, Plt Count 364, MPV 10.7 H, Neut % (Auto) 80.8 H, Lymph % (Auto) 11.5, [place] % (Auto) 6.7, Eos % (Auto) 0.4, Baso % (Auto) 0.3, Neut # (Auto) 15.8 H, Lymph # (Auto) 2.2, [place] # (Auto) 1.3 H, Eos # (Auto) 0.1, Baso # (Auto) 0.1, Sodium 134 L, Potassium 4.4, Chloride 102, Carbon Dioxide 23, Anion Gap 13.4, BUN 17, Creatinine 0.60, Estimated Creat Clear 116, Estimated GFR 102, Est GFR ( Amer) 124, Glucose 186 H, Lactate 1.1, Calcium 8.7, Total Bilirubin 1.2, AST 41 H, ALT 37, Alkaline Phosphatase 65, Total Protein 7.3, Albumin 4.1, Globulin 3.2, Albumin/Globulin Ratio 1.3 05/07/25 06:25: WBC 15.4 H, RBC 3.78 L, Hgb 12.7, Hct 37.2, MCV 98.4, MCH 33.6 H, MCHC 34.1, RDW 12.2, Plt Count 398, MPV 10.5 H, Neut % (Auto) 69.3, Lymph % (Auto) 18.1, [place] % (Auto) 11.0 H, Eos % (Auto) 0.8, Baso % (Auto) 0.3, Neut # (Auto) 10.7 H, Lymph # (Auto) 2.8, [place] # (Auto) 1.7 H, Eos # (Auto) 0.1, Baso # (Auto) 0.0, Total Counted 100, Neutrophils % (Manual) 64, Lymphocytes % (Manual) 23, Monocytes % (Manual) 12 H, Basophils % (Manual) 1.0, Platelet Estimate Normal, RBC Morphology Normal, Sodium 140, Potassium 3.5 D, Chloride 106, Carbon Dioxide 28, Anion Gap 9.5, BUN 12 D, Creatinine 0.70, Estimated Creat Clear 106, Estimated GFR 86, Est GFR ( Amer) 104, Glucose 118 H D, Calcium 9.1, Magnesium 2.3 D I & O for Last 24 hours: Intake & Output 05/04/25 05/05/25 05/06/25 05/07/25 23:59 23:59 23:59 23:59 Intake Total 600 / 840 2490 / 2490 Output Total 0 / 0 Balance 600 / 840 2490 / 2490 Weight 77.247 kg Constitutional Constitutional: no acute distress and chronically ill appearing *Routine HEENT Exam Head: Present normocephalic Eye: Present EOMI and PERRL ENT: Present mucous membranes moist *Routine Neck Exam Neck: Present supple; Absent lymphadenopathy *Routine Respiratory Exam Respiratory: Present CTA bilaterally *Routine Cardiovascular Exam Cardiovascular: Present RRR *Routine Abdominal Exam Abdominal: Present soft and normoactive bowel sounds; Absent tenderness *Routine Extremities Exam Extremities: Absent cyanosis, clubbing or edema *Routine Skin Exam Skin: Present warm; Absent rash *Routine Neurological Exam Neurological: Present alert and oriented X3 Assessment and Plan *Assessment and plan (1) Abdominal abscess: Status: Deleted Category: Medical (2) Abscess of sigmoid colon due to diverticulitis: Status: Deleted Category: Medical Code(s): K57.20 - Diverticulitis of large intestine with perforation and abscess without bleeding Plan Sharon Canales is a 59-year-old female without significant past medical history presents with worsening abdominal discomfort. Patient diagnosed with diverticular abscess 05/05 in emergency room, but elected to leave AMA and spend [place] with family. Presented again with persistent abdominal discomfort urged to revisit emergency room by her mother. Problems as listed below: Sigmoid diverticular abscess: ? 05/05 CT abdomen/pelvis shows 1.3 x 2.1 cm sigmoid colon abscess. Initial WBC 05/05 = 19.1 versus WBC 05/06 19.6. Zosyn 4.5 g x 1 in emergency room then transition to Zosyn 3.375 IV every 6 x 7 days. ? Surgery already consulted yesterday and recommended clear liquid diet, IV antibiotics. Reconsult surgery to see during hospitalization. ? Morphine 2 mg IV every 6 as needed severe pain. Oxycodone 5 mg p.o. every 4 as needed moderate pain. Tylenol 650 p.o. Q4 as needed pain or fever. ? Today, patient states she feels better, no abdominal pain. WBC down to 15.4, no fevers. ? Will continue clear liquids for lunch, and if tolerating well cautiously advance to full liquid diet for dinner. ? Continue IV Zosyn 3.375 every 6 hours. ? Will need a colonoscopy in 6 to 8 weeks. ? Follow-up morning CBC. #Chronic tobacco smoker ? Nicotine patch daily. Full code DVT prophylaxis: Lovenox 40 mg
--- NOTE | 2025-05-07 15:52 | PC.NURSE ---
No acute changes this shift. Pt has no complaints at this time. NS infusing @ 125 ml/hr. ABX currently infusing. Pt A&O x4. Currently on RA. Ambulating without difficulty to BR. Call light within reach.
[2025-05-07 16:00] VITALS: BP 116/69; PULSE 64; RESP 20; TEMP 36.6; O2SAT 98
[2025-05-07 20:00] VITALS: BP 124/54; PULSE 67; RESP 16; TEMP 36.9; O2SAT 95
[2025-05-07] MEDS: NICOTINE 21MG/24HR PATCH 21 MG TD (21:24)
[2025-05-08] MEDS: PIPERCILLIN/TAZO 3.375 GM in 0.9 % SODIUM CHLORIDE 50 ML IV ×2 (02:15→08:54)
[2025-05-08] MEDS: 0.9 % SODIUM CHLORIDE 1000ML 1,000 ML 125 ML IV (02:17)
--- NOTE | 2025-05-08 02:41 | PC.NURSE ---
Aox 4, up ad kyle, on RA, 20g R H NS @ 125, ON ABX.
[2025-05-08 04:00] VITALS: BP 128/76; PULSE 74; RESP 14; TEMP 36.8; O2SAT 100; BMI 27.8
[2025-05-08] MEDS: ACETAMINOPHEN 325MG TAB 650 MG PO (06:25)
[2025-05-08 06:41] LABS: Hematocrit 32.9 % (37.0-47.0); Immature Granulocytes % 0.5 %; Mean Corpuscular HGB Conc 33.7 g/dL (31.8-35.4); Mean Corpuscular Hemoglobin 33.1 pg (27.0-31.2); Mean Corpuscular Volume 98.2 fl (81-99); Nucleated Red Blood Cells % 0 %; Platelet Count 347 K/mm3 (142-424); Red Blood Count 3.35 M/mm3 (4.20-5.40); Red Cell Distribution Width-SD 43.9 fL; White Blood Count 9.8 K/mm3 (4.8-10.8)
[2025-05-08 06:58] LABS: Chloride 110 mmol/L (98-107); Potassium 3.5 mmoL/L (3.5-5.1); Sodium 142 mmol/L (136-145)
[2025-05-08 06:59] LABS: Hemoglobin 10.9 g/dL (12.2-16.2)
[2025-05-08 07:01] LABS: Anion Gap 8.5 mEq/L (5-15); Blood Urea Nitrogen 12 mg/dl (7-17); Calcium 8.8 mg/dl (8.4-10.2); Carbon Dioxide 27 mmol/L (22.0-30.0); Creatinine Clearance Estimated 107 mL/min (50-200); Creatinine,Serum 0.70 mg/dl (0.52-1.04); Estimated Glomerular Filt Rate 86 ml/min (>60); GFR (African American) 104 ML/MIN (>60); Glucose 99 mg/dl (74-100); Magnesium 2.3 mg/dl (1.6-2.3)
[2025-05-08 08:00] VITALS: BP 104/46; PULSE 63; RESP 18; TEMP 36.6; O2SAT 94
--- NOTE | 2025-05-08 09:54 | EXP.SURG.PN ---
Subjective Patient reports: feels better and flatus Narrative: Patient feels pretty good this morning. Denies abdominal pain. Tolerating some full liquids. Passing gas but no bowel movement. Exam Data for Last 24 hours Vital signs and Labs for Last 24 Hours: Temp Pulse Resp BP Pulse Ox O2 Del Method 97.8 F 63 18 104/46 L 94 L Room Air 05/08/25 08:00 05/08/25 08:00 05/08/25 08:00 05/08/25 08:00 05/08/25 08:00 05/08/25 09:00 Laboratory Results - last 24 hr 05/08/25 06:15: WBC 9.8 D, RBC 3.35 L, Hgb 10.9 L D, Hct 32.9 L, MCV 98.2, MCH 33.1 H, MCHC 33.7, RDW 12.0, Plt Count 347, MPV 10.1, Neut % (Auto) 64.8, Lymph % (Auto) 21.3, [place] % (Auto) 10.6 H, Eos % (Auto) 2.4, Baso % (Auto) 0.4, Neut # (Auto) 6.3, Lymph # (Auto) 2.1, [place] # (Auto) 1.0, Eos # (Auto) 0.2, Baso # (Auto) 0.0, Sodium 142, Potassium 3.5, Chloride 110 H, Carbon Dioxide 27, Anion Gap 8.5, BUN 12, Creatinine 0.70, Estimated Creat Clear 107, Estimated GFR 86, Est GFR ( Amer) 104, Glucose 99, Calcium 8.8, Magnesium 2.3 I & O for Last 24 hours: Intake & Output 05/05/25 05/06/25 05/07/25 05/08/25 11:59 11:59 11:59 11:59 Intake Total 2660 / 2660 3240 / 3240 Output Total 0 / 0 0 / 0 Balance 2660 / 2660 3240 / 3240 Weight 170 lb 4.8 oz 172 lb 12.8 oz *Routine Abdominal Exam Abdominal: Present soft; Absent tenderness Progress Note: A&P Assessment and plan (1) Abdominal abscess: Status: Deleted (2) Abscess of sigmoid colon due to diverticulitis: Status: Deleted Assessment and plan: Advance to low residue diet. Transition to oral antibiotics in anticipation of possible discharge in the near future.
[2025-05-08] MEDS: AMOXICILLIN/POT CLAVULAN 500MG TABLET 1 EACH PO ×2 (12:52→20:14)
--- NOTE | 2025-05-08 14:06 | EXP.DC.SUM ---
General Admission date:: 05/06/25 HPI HPI HPI: This a 59-year-old female seen in consultation after recent evaluation in the emergency department. She was diagnosed with likely diverticulitis with early/developing abscess. She was admitted to the Hospitalist Service and the surgical service was consulted. She currently feels better . She is continuing to pass gas. Currently with minimal abdominal pain. No nausea. She states that she has never had a colonoscopy. Forwarded from admission H&P: 59 yo Patient without significant past medical history presents with abdominal pain x 2 to 3 days. Describes abdominal pain as bilateral groin, excruciatingly uncomfortable, intermittent, worsening with time. CT abdomen/pelvis done in the emergency room 05/05 showed sigmoid diverticular abscess 1.3 x 2.1 cm. Patient had family in town, so elected to leave the emergency room AMA 05/05. Patient now represents because my mom may become back. Patient's mother present with patient in emergency room. Denies chest pain, palpitations, shortness of breath, productive cough, GI bleeding, recent falls, recent MVAs, known sick contacts. Surgery consulted yesterday during previous emergency room evaluation and recommended admission, clear liquid diet, and IV antibiotics. Exam Data for Last 24 hours Vital signs and Labs for Last 24 Hours: Temp Pulse Resp BP Pulse Ox O2 Del Method 97.8 F 63 18 104/46 L 94 L Room Air 05/08/25 08:00 05/08/25 08:00 05/08/25 08:00 05/08/25 08:00 05/08/25 08:00 05/08/25 11:00 Laboratory Results - last 24 hr 05/08/25 06:15: WBC 9.8 D, RBC 3.35 L, Hgb 10.9 L D, Hct 32.9 L, MCV 98.2, MCH 33.1 H, MCHC 33.7, RDW 12.0, Plt Count 347, MPV 10.1, Neut % (Auto) 64.8, Lymph % (Auto) 21.3, [place] % (Auto) 10.6 H, Eos % (Auto) 2.4, Baso % (Auto) 0.4, Neut # (Auto) 6.3, Lymph # (Auto) 2.1, [place] # (Auto) 1.0, Eos # (Auto) 0.2, Baso # (Auto) 0.0, Sodium 142, Potassium 3.5, Chloride 110 H, Carbon Dioxide 27, Anion Gap 8.5, BUN 12, Creatinine 0.70, Estimated Creat Clear 107, Estimated GFR 86, Est GFR ( Amer) 104, Glucose 99, Calcium 8.8, Magnesium 2.3 I & O for Last 24 hours: Intake & Output 05/05/25 05/06/25 05/07/25 05/08/25 23:59 23:59 23:59 23:59 Intake Total 600 / 840 4640 / 4640 1070 / 1070 Output Total 0 / 0 0 / 0 Balance 600 / 840 4640 / 4640 1070 / 1070 Weight 77.247 kg 78.381 kg Results Data Completed and Pending Labs on day of discharge: Labs from last 24 hours 05/08/25 06:15 WBC 9.8 D RBC 3.35 L Hgb 10.9 L D Hct 32.9 L MCV 98.2 MCH 33.1 H MCHC 33.7 RDW 12.0 Plt Count 347 MPV 10.1 Neut % (Auto) 64.8 Lymph % (Auto) 21.3 [place] % (Auto) 10.6 H Eos % (Auto) 2.4 Baso % (Auto) 0.4 Neut # (Auto) 6.3 Lymph # (Auto) 2.1 [place] # (Auto) 1.0 Eos # (Auto) 0.2 Baso # (Auto) 0.0 Sodium 142 Potassium 3.5 Chloride 110 H Carbon Dioxide 27 Anion Gap 8.5 BUN 12 Creatinine 0.70 Estimated Creat Clear 107 Estimated GFR 86 Est GFR ( Amer) 104 Glucose 99 Calcium 8.8 Magnesium 2.3 DS: Diagnosis Discharge Diagnosis (1) Abdominal abscess: Status: Deleted (2) Abscess of sigmoid colon due to diverticulitis: Status: Deleted Code(s): K57.20 - Diverticulitis of large intestine with perforation and abscess without bleeding Meds Home Medications and Allergies New Prescriptions to Start Prescriptions: Allergies Allergy/AdvReac Type Severity Reaction Status Date / Time No Known Allergies Allergy Verified 10/16/24 13:43 Discharge Plan Disposition Patient Disposition: Home, Self-Care Condition: Fair Discharge Order Discharge Orders: Discharge Order (Routine); Ordered 05/08/25 Ordered By: Jace Tinoco Follow up Plan Follow up with: Aleksandra Baptiste APRN [Nurse Practitioner, Ear, Nose, Throat] - 1 week Referral Note: Vertigo Prescriptions/Medication Reconciliation: Discontinued amoxicillin-pot clavulanate 500-125 mg tablet 1 tab PO BID Other Ambulatory Orders: Rehab Eval, OP (Routine) Timeframe: 1 Week Facility: [facility] - Location: Physical Therapy Ordered By: Jace Tinoco Problem Reconciliation Problems Reviewed?: Yes Patient Discharge Instructions Patient Instructions: DI for Diverticulitis Print Language: Welsh Providers Primary Care Provider: Jose Quintanilla Admit Provider: Jace Tinoco Attending Provider: Jace Tinoco
--- NOTE | 2025-05-08 15:21 | EXP.PN ---
Subjective *Date: 05/08/25 *Time: 15:21 Interval history: Patient feels well today, tolerating full liquid diet. Discussed with general surgery, will switch from IV Zosyn to Augmentin. Follow-up response over the next day. Advanced to low residue diet. Exam Data for Last 24 hours Vital signs and Labs for Last 24 Hours: Temp Pulse Resp BP Pulse Ox O2 Del Method 97.8 F 63 18 104/46 L 94 L Room Air 05/08/25 08:00 05/08/25 08:00 05/08/25 08:00 05/08/25 08:00 05/08/25 08:00 05/08/25 11:00 Laboratory Results - last 24 hr 05/08/25 06:15: WBC 9.8 D, RBC 3.35 L, Hgb 10.9 L D, Hct 32.9 L, MCV 98.2, MCH 33.1 H, MCHC 33.7, RDW 12.0, Plt Count 347, MPV 10.1, Neut % (Auto) 64.8, Lymph % (Auto) 21.3, [place] % (Auto) 10.6 H, Eos % (Auto) 2.4, Baso % (Auto) 0.4, Neut # (Auto) 6.3, Lymph # (Auto) 2.1, [place] # (Auto) 1.0, Eos # (Auto) 0.2, Baso # (Auto) 0.0, Sodium 142, Potassium 3.5, Chloride 110 H, Carbon Dioxide 27, Anion Gap 8.5, BUN 12, Creatinine 0.70, Estimated Creat Clear 107, Estimated GFR 86, Est GFR ( Amer) 104, Glucose 99, Calcium 8.8, Magnesium 2.3 I & O for Last 24 hours: Intake & Output 05/05/25 05/06/25 05/07/25 05/08/25 23:59 23:59 23:59 23:59 Intake Total 600 / 840 4640 / 4640 1070 / 1070 Output Total 0 / 0 0 / 0 Balance 600 / 840 4640 / 4640 1070 / 1070 Weight 77.247 kg 78.381 kg Constitutional Constitutional: no acute distress and chronically ill appearing *Routine HEENT Exam Head: Present normocephalic Eye: Present EOMI and PERRL ENT: Present mucous membranes moist *Routine Neck Exam Neck: Present supple; Absent lymphadenopathy *Routine Respiratory Exam Respiratory: Present CTA bilaterally *Routine Cardiovascular Exam Cardiovascular: Present RRR *Routine Abdominal Exam Abdominal: Present soft and normoactive bowel sounds; Absent tenderness *Routine Extremities Exam Extremities: Absent cyanosis, clubbing or edema *Routine Skin Exam Skin: Present warm; Absent rash *Routine Neurological Exam Neurological: Present alert and oriented X3 Assessment and Plan *Assessment and plan (1) Abdominal abscess: Status: Deleted Category: Medical (2) Abscess of sigmoid colon due to diverticulitis: Status: Deleted Category: Medical Code(s): K57.20 - Diverticulitis of large intestine with perforation and abscess without bleeding Plan Sharon Canales is a 59-year-old female without significant past medical history presents with worsening abdominal discomfort. Patient diagnosed with diverticular abscess 05/05 in emergency room, but elected to leave AMA and spend [place] with family. Presented again with persistent abdominal discomfort urged to revisit emergency room by her mother. Problems as listed below: Sigmoid diverticular abscess: ? 05/05 CT abdomen/pelvis shows 1.3 x 2.1 cm sigmoid colon abscess. Initial WBC 05/05 = 19.1 versus WBC 05/06 19.6. Zosyn 4.5 g x 1 in emergency room then transition to Zosyn 3.375 IV every 6 x 7 days. ? Morphine 2 mg IV every 6 as needed severe pain. Oxycodone 5 mg p.o. every 4 as needed moderate pain. Tylenol 650 p.o. Q4 as needed pain or fever. ? Today, patient states she feels better, minimal abdominal pain. WBC down to 9.8, no fevers. ? Discussed with general surgery, recommend switching from IV antibiotics to oral and monitor for 1 more day given severe initial inflammation. ? Switched to Augmentin 500 mg 3 times daily, discontinue IV Zosyn. ? Advance to low residue diet. ? Will need a colonoscopy in 6 to 8 weeks. ? Follow-up morning CBC. #Chronic tobacco smoker ? Nicotine patch daily. Full code DVT prophylaxis: Lovenox 40 mg
--- NOTE | 2025-05-08 15:30 | PC.NURSE ---
Pt A&Ox4. States abdomen feels better. Still c/o some tenderness and tightness to abdomen. Tolerating diet. BM this AM. BP soft at times this shift. ABX switched from IV to PO per MD this shift. Call light within reach.
[2025-05-08 16:00] VITALS: BP 121/70; PULSE 62; TEMP 36.6; O2SAT 96
[2025-05-08] MEDS: FUROSEMIDE 20 MG/2 ML VIAL IV (16:42)
[2025-05-08 20:00] VITALS: BP 110/68; PULSE 61; RESP 16; TEMP 36.7; O2SAT 97
[2025-05-08] MEDS: NICOTINE 21MG/24HR PATCH 21 MG TD (20:13)
[2025-05-09 04:00] VITALS: BP 104/61; PULSE 61; RESP 16; TEMP 36.4; O2SAT 94; BMI 27.8
[2025-05-09 06:40] LABS: Hematocrit 35.3 % (37.0-47.0); Immature Granulocytes % 0.3 %; Mean Corpuscular HGB Conc 34.0 g/dL (31.8-35.4); Mean Corpuscular Hemoglobin 32.7 pg (27.0-31.2); Mean Corpuscular Volume 96.2 fl (81-99); Nucleated Red Blood Cells % 0 %; Platelet Count 391 K/mm3 (142-424); Red Blood Count 3.67 M/mm3 (4.20-5.40); Red Cell Distribution Width-SD 42.2 fL; White Blood Count 10.1 K/mm3 (4.8-10.8)
[2025-05-09 06:51] LABS: Chloride 107 mmol/L (98-107); Sodium 142 mmol/L (136-145)
[2025-05-09 06:52] LABS: Potassium 3.5 mmoL/L (3.5-5.1)
[2025-05-09 06:54] LABS: Blood Urea Nitrogen 16 mg/dl (7-17); Creatinine Clearance Estimated 125 mL/min (50-200); Creatinine,Serum 0.60 mg/dl (0.52-1.04); Estimated Glomerular Filt Rate 102 ml/min (>60); GFR (African American) 124 ML/MIN (>60)
[2025-05-09 06:55] LABS: Anion Gap 9.5 mEq/L (5-15); Calcium 9.3 mg/dl (8.4-10.2); Carbon Dioxide 29 mmol/L (22.0-30.0); Glucose 103 mg/dl (74-100); Magnesium 2.2 mg/dl (1.6-2.3)
[2025-05-09 07:23] LABS: Hemoglobin 12.1 g/dL (12.2-16.2)
[2025-05-09 08:00] VITALS: BP 122/75; PULSE 70; RESP 16; TEMP 36.8; O2SAT 93
[2025-05-09] MEDS: AMOXICILLIN/POT CLAVULAN 500MG TABLET 1 EACH PO ×2 (08:52→12:16)
--- NOTE | 2025-05-09 09:26 | P.DS_ITS ---
<Statement entered by Tree Hernandez MD - 05/09/25 14:24> Rounded on patient after nurse practitioner. Personally examined and interviewed patient. Agree with exam findings and care plan as documented. General Admission date:: 05/06/25 Discharge date: 05/09/25 HPI HPI HPI: 59 yo Patient without significant past medical history presents with abdominal pain x 2 to 3 days. Describes abdominal pain as bilateral groin, excruciatingly uncomfortable, intermittent, worsening with time. CT abdomen/pelvis done in the emergency room 05/05 showed sigmoid diverticular abscess 1.3 x 2.1 cm. Patient had family in [facility], so elected to leave the emergency room AMA 05/05. Patient now represents because my mom may become back. Patient's mother present with patient in emergency room. Denies chest pain, palpitations, shortness of breath, productive cough, GI bleeding, recent falls, recent MVAs, known sick contacts. Surgery consulted yesterday during previous emergency room evaluation and recommended admission, clear liquid diet, and IV antibiotics. Hospital Course Hospital Course Hospital Course: Ms. Canales is a 59-year-old female without significant previous medical history who presented to the emergency department on 05/05/2025 with complaints of worsening abdominal pain. Patient workup was significant for sigmoid diverticular abscess, admission was recommended at that time. Patient decided to leave AMA. Patient returned to the emergency department on 05/06/2025 with c ontinued complaints of abdominal pain, discomfort and ultimately was admitted to the medical surgical floor for fluids and IV antibiotics. Hospital medicine was consulted for continued management, and agreed to admit the patient. Hospital course as follows: #Sigmoid diverticular abscess #Leukocytosis, resolved #Abdominal pain ?Patient had abdomen/pelvis CT on 05/05 which showed a 1.3 x 2.1 cm sigmoid colon abscess. Initial WBC 19.1, trending to 19.6. Patient was initiated on Zosyn 4.5 g x 1 in the emergency department, transition to Zosyn 3.375 every 6 hours IV. Patient was then transitioned yesterday to Augmentin 500 mg 3 times daily. Tolerating without issue. ?Assessment day of discharge patient denies severe abdominal pain, states she has had intermittent, mild nonfocal discomfort. Patient passing flatus and had a bowel movement yesterday. Tolerating p.o. intake without issues. Leukocytosis resolved, WBC 10.1. ?Counseled patient on continuing low residue diet for the time being, continuing oral antibiotics to complete 7-day course. Consulted with general surgery who agrees with discharge and close follow-up, likely need a colonoscopy in approximately 8 weeks. ?Additional lab work remains unremarkable, no anemia, no electrolyte abnormalities, normal kidney function. Vital signs reassuring, normotensive, afebrile. #Tobacco use disorder: Nicotine patches ordered daily, smoking cessation discussed. Total time spent on discharge 35 minutes in counseling, documentation, chart review, and direct care with patient. Exam Data for Last 24 hours Vital signs and Labs for Last 24 Hours: Temp Pulse Resp BP Pulse Ox O2 Del Method 98.2 F 70 16 122/75 93 L Room Air 05/09/25 08:00 05/09/25 08:00 05/09/25 08:00 05/09/25 08:00 05/09/25 08:00 05/09/25 08:58 Laboratory Results - last 24 hr 05/09/25 05:57: WBC 10.1, RBC 3.67 L, Hgb 12.1 L D, Hct 35.3 L, MCV 96.2, MCH 32.7 H, MCHC 34.0, RDW 11.9, Plt Count 391, MPV 10.2, Neut % (Auto) 62.1, Lymph % (Auto) 23.9, [place] % (Auto) 10.6 H, Eos % (Auto) 2.5, Baso % (Auto) 0.6, Neut # (Auto) 6.3, Lymph # (Auto) 2.4, [place] # (Auto) 1.1 H, Eos # (Auto) 0.3, Baso # (Auto) 0.1, Sodium 142, Potassium 3.5, Chloride 107, Carbon Dioxide 29, Anion Gap 9.5, BUN 16 D, Creatinine 0.60, Estimated Creat Clear 125, Estimated GFR 102, Est GFR ( Amer) 124, Glucose 103 H, Calcium 9.3, Magnesium 2.2 I & O for Last 24 hours: Intake & Output 05/06/25 05/07/25 05/08/25 05/09/25 23:59 23:59 23:59 23:59 Intake Total 600 / 840 4640 / 4640 2430 / 2430 320 / 320 Output Total 0 / 0 500 / 500 600 / 600 Balance 600 / 840 4640 / 4640 1930 / 1930 -280 / -280 Weight 77.247 kg 78.381 kg 78.381 kg Constitutional Constitutional: no acute distress, average body habitus and cooperative *Routine HEENT Exam Head: Present normocephalic Eye: Present EOMI ENT: Present mucous membranes moist *Routine Neck Exam Neck: Present supple and full ROM *Routine Respiratory Exam Respiratory: Present CTA bilaterally and normal respiratory effort; Absent wheezes or crackles *Routine Cardiovascular Exam Cardiovascular: Present RRR, Normal S1, Normal S2 and murmur *Routine Abdominal Exam Abdominal: Present soft, normoactive bowel sounds and tenderness (Mild nonfocal); Absent distended *Routine Rectal Exam Patient deferred: visual exam *Routine Exam Patient deferred: external exam *Routine Extremities Exam Extremities: Present full ROM; Absent cyanosis, clubbing or edema *Routine Skin Exam Skin: Present intact, dry and warm; Absent rash *Routine Neurological Exam Neurological: Present alert, oriented X3, vision grossly intact, hearing grossly intact and normal speech Routine Psychiatric Exam Psychiatric: Present normal affect and cooperative Results Data Completed and Pending Labs on day of discharge: Labs from last 24 hours 05/09/25 05:57 WBC 10.1 RBC 3.67 L Hgb 12.1 L D Hct 35.3 L MCV 96.2 MCH 32.7 H MCHC 34.0 RDW 11.9 Plt Count 391 MPV 10.2 Neut % (Auto) 62.1 Lymph % (Auto) 23.9 [place] % (Auto) 10.6 H Eos % (Auto) 2.5 Baso % (Auto) 0.6 Neut # (Auto) 6.3 Lymph # (Auto) 2.4 [place] # (Auto) 1.1 H Eos # (Auto) 0.3 Baso # (Auto) 0.1 Sodium 142 Potassium 3.5 Chloride 107 Carbon Dioxide 29 Anion Gap 9.5 BUN 16 D Creatinine 0.60 Estimated Creat Clear 125 Estimated GFR 102 Est GFR ( Amer) 124 Glucose 103 H Calcium 9.3 Magnesium 2.2 DS: Diagnosis Discharge Diagnosis (1) Abdominal abscess: Status: Deleted (2) Abscess of sigmoid colon due to diverticulitis: Status: Deleted Code(s): K57.20 - Diverticulitis of large intestine with perforation and abscess without bleeding Meds Home Medications and Allergies Home Medications ?Medication ?Instructions ?Recorded ?Confirmed ?Type amoxicillin 500 mg-potassium 1 tab PO TID #17 tabs Rx clavulanate 125 mg tablet New Prescriptions to Start Prescriptions: amoxicillin-pot clavulanate Romy Concepcion Allergies Allergy/AdvReac Type Severity Reaction Status Date / Time No Known Allergies Allergy Verified 10/16/24 13:43 Discharge Plan Disposition Patient Disposition: Home, Self-Care Condition: Fair Discharge Order Discharge Orders: Discharge Order (Routine); Ordered 05/09/25 Ordered By: Romy Concepcion Follow up Plan Follow up with: Jose Quintanilla APRN [Primary Care Provider, Medical] - Enter time for follow up Marquis Trujillo MD [Staff Physician, General Surgery] - Enter time for follow up Prescriptions/Medication Reconciliation: New amoxicillin-pot clavulanate 500-125 mg Tablet 1 tab PO TID Qty: 17 0RF Discontinued amoxicillin-pot clavulanate 500-125 mg tablet 1 tab PO BID Problem Reconciliation Problems Reviewed?: Yes Patient Discharge Instructions ACTIVITY: Continue current activity DIET: continue same diet Patient Instructions: DI for Diverticulitis Print Language: Brazilian Providers Primary Care Provider: Jose Quintanilla Admit Provider: Jace Tinoco Attending Provider: Jace Tinoco
--- NOTE | 2025-05-09 09:32 | HMH.PHAAMS2 ---
- Antimicrobial Stewardship Review culture & sensitivity review Stewardship interventions: culture & sensitivity review, reviewed - no change Comments: URINE CX NO GROWTH AT 48 HR, PATIENT ON AUGMENTIN FOR DIVERTICULAR ABSCESS, WBC WNL AT 10.1 K/mm3, AFEBRILE OVER 24 HR.
--- NOTE | 2025-05-11 10:47 | SW/DCPLANNER ---
Phoned patient x2. Patient's number has been disconnected or no longer in service. I phoned patient's mothers number and it just rang and was not able to leave a message. Madan ROSS [employer]
== END 2025-05-09 13:50 | disposition home or self-care (01) | DRG 392 ==
LOC: ER 18:07 → 2ND 19:47
PROVIDERS: Internal Medicine; Nurse Practitioner Acute Care; Admitting Provider Student in an Organized Health Care Education/Training Program; Emergency Provider Student in an Organized Health Care Education/Training Program; PCP Nurse Practitioner Family; Visit Provider Student in an Organized Health Care Education/Training Program
DX: K57.20 Diverticulitis of large intestine with perforation and abscess without bleeding (principal); F17.210 Nicotine dependence, cigarettes, uncomplicated
CPT/HCPCS: 36415; 74018; 80048; 80053; 83605; 83735; 85007; 85025; 99285; J1650; J1938; J2543; J7030